=== PATIENT | male | born 1955 | race Caucasian/White ===

== ENCOUNTER → 2017-05-17 | Outpatient (CLI) | payer BC ==
[~2017-05-17] MED LIST: AMBIEN PO; CELE100C PO; HYDR-3713 PO; ISOVUE-370 76% 100ML VIAL (Q9967) As Ordered ONE; LOPR50TA PO; LOSA100T36 PO; META800T82 PO; NAPR500T2 PO; OXYC-208 PO; OXYC15TA76 PO; SOMA350T PO; VICOBULK PO
--- NOTE | 2017-05-17 09:42 | REP ---
CT CHEST WITH CONTRAST: 05/17/2017 COMPARISON: 06/03/2016, 07/10/2015, 05/08/2014. TECHNIQUE: Bolus of 75 mL Isovue 370 given and scanning through the chest with coronal and sagittal reconstructions. FINDINGS: Lung castellanos are well inflated. Prior surgical clips about the hilum and evidence for prior right upper lobectomy. Some curvilinear scarring noted and adjacent to that curvilinear scar. There are new multiple small nodular opacities and nodular infiltrate or increased scarring in the previously stable area. Surgical clips and vivienne are again noted. There is no pneumothorax or pleural effusion, lateral pleural thickening on that right side, however along the right lateral base, there is posterolateral pleural thickening and scar. Some minor linear scarring in the medial basal segment and lateral basal segment of the right lower lobe. The left lung is well inflated and remains clear except for calcified granuloma on image 19 of series 201 abutting the pleura in that left upper lobe. There are left hilar, right hilar and subcarinal calcified granulomatous nodes. Heart is not enlarged. There is no pericardial thickening or effusion. The aorta is without aneurysm or dissection. The main right and left pulmonary arteries show no gross filling defect. There is no axillary or supraclavicular mass or gross evidence for hilar mass. Bone windows show the sternum, manubrium, medial clavicles, humeral heads, scapulae and ribs without acute finding. Posterolateral right 6th rib as before. No destructive rib lesion or acute fracture. Degenerative changes in the spine without acute compression deformity. In the upper abdomen the liver, visualized is unremarkable. Spleen has a few calcifications from old granulomas disease. That portion of gallbladder and pancreas included were unremarkable. Adrenal glands and the upper poles of the kidneys are intact. Portion of pancreas and stomach included normal. IMPRESSION: 1. There is interval change in that the area along scarring in the right upper lung zone previously stable shows increased fibronodular densities mostly new. It certainly raise the possibility of tumor recurrence in that portion of the lung. I do not see definite hilar mass. Careful follow-up warranted. Differential considerations would include nodular interstitial infiltrates. 2. There are old calcified granulomas left lung and calcified hilar and mediastinal nodes as before. 3. No pathologic mediastinal or hilar adenopathy, focal lesions in the liver, spleen, adrenal glands or upper poles of the kidneys and that portion of the pancreas included is unremarkable. Bones without acute finding. Signed by Hubert Chavez MD 05/17/2017 06:54 P
== END ==
LOC: M RAD 08:07
PROVIDERS: ATTEND Nurse Practitioner Family
DX: C34.90 Malignant neoplasm of unspecified part of unspecified bronchus or lung (principal)
CPT/HCPCS: 71260; Q9967

== ENCOUNTER → 2017-07-18 | Outpatient (CLI) | payer BC ==
--- NOTE | 2017-07-18 10:16 | REP ---
CT chest with IV contrast: History: Lung carcinoma. Comparison chest CT study is from May 17, 2017. Also reviewed is CT study from June 03, 2016. CT contrast dose: 75 mL of Isovue [address] findings: The patient is status post right upper lobectomy. There is a suture line at the right hilus superiorly. There is some adjacent fibrosis in the perihilar region of the right middle lobe. This is improved when compared with the most recent prior study of May 17, 2017 and is essentially unchanged from the June 03, 2016 appearance in this region of the lung. Post thoracotomy changes are noted in the right rib cage as before. There are granulomatous calcific lymph node residuals in the mediastinum and the left hilus. Stable calcified and noncalcified nodular opacities are seen bilaterally. No new nodule is seen. No hilar or mediastinal adenopathy is observed. There is left coronary artery vascular calcification again visualized. Calcific granulomatous changes are seen in the spleen and liver as before. No adrenal lesion is observed. No extrathoracic mass or adenopathy is seen. No bony destructive lesion is appreciated. Impression: Post thoracotomy changes on the right. Granulomatous lymph node residuals and pulmonary and splenic and hepatic calcifications again noted. Some vascular calcification. Otherwise no acute disease. Peribronchial and perihilar changes in the right middle lobe distribution are improved compared to the most recent prior study. Signed by Alphonse Harp MD 07/18/2017 03:03 P
== END ==
LOC: M RAD 08:51
PROVIDERS: ATTEND Nurse Practitioner Family
DX: C34.10 Malignant neoplasm of upper lobe, unspecified bronchus or lung (principal)
CPT/HCPCS: 71260; Q9967

== ENCOUNTER → 2018-08-15 | Outpatient (CLI) | payer BC ==
[~2018-08-15] MED LIST changes: -AMBIEN PO; -CELE100C PO; -HYDR-3713 PO; +ISOVUE-370 76% 100ML VIAL (Q9967) As Ordered; -ISOVUE-370 76% 100ML VIAL (Q9967) As Ordered ONE; -LOPR50TA PO; -LOSA100T36 PO; -META800T82 PO; -NAPR500T2 PO; -OXYC-208 PO; -OXYC15TA76 PO; -SOMA350T PO; -VICOBULK PO
== END ==
LOC: M RAD 11:03
DX: Z85.118 Personal history of other malignant neoplasm of bronchus and lung (principal); I70.0 Atherosclerosis of aorta; I25.10 Atherosclerotic heart disease of native coronary artery without angina pectoris
CPT/HCPCS: Q9967

== ENCOUNTER → 2019-07-23 | Outpatient (CLI) | payer BC ==
[~2019-07-23] MED LIST changes: +AMBIEN PO; +CELE100C PO; +HYDR-3713 PO; -ISOVUE-370 76% 100ML VIAL (Q9967) As Ordered; +ISOVUE-370 76% 100ML VIAL (Q9967) As Ordered ONE; +LOPR50TA PO; +LOSA100T50 PO; +META800T82 PO; +NAPR500T2 PO; +OXYC-208 PO; +OXYC15TA76 PO; +SOMA350T PO; +VICOBULK PO
--- NOTE | 2019-07-23 16:16 | REP ---
CT of the chest with IV contrast: Comparison is 08/15/2018. There are surgical clips in the right hilus and surgical staple line in the right lung anteriorly and resection of the posterior arch of the right seventh rib, all compatible with right upper lobectomy. This is unchanged. There are a few scattered small lung nodules, similar calcified, and is are not. These are unchanged. There are no enlarging nodules. There are no acute infiltrates. There are no pleural effusions. There are calcified subcarinal mediastinal nodes. This is unchanged. There is no other mediastinal adenopathy. There are calcified hilar nodes. There is no hilar lymph node enlargement. There is no axillary lymphadenopathy. The thoracic aorta is unremarkable. Cardiac size is normal. Upper abdomen: There is no adrenal mass. The visualized hepatic parenchyma is homogeneous. The gallbladder, visualized areas of the gallbladder, pancreas and spleen are unremarkable except for multiple splenic calcified granulomas, unchanged. There is no adrenal mass. Impression: Postsurgical changes in the right hemithorax compatible with right upper lobectomy, unchanged. There are multiple small lung nodules, some of which are calcified, not significant changed. There are no enlarging lung nodules. There are calcified hilar and mediastinal nodes, unchanged. There are calcified granulomas in the spleen, unchanged. There are no new lung masses or nodules Electronically Signed by Shahid Cartagena MD 07/23/2019 04:07 P
== END ==
LOC: M RAD 13:37
PROVIDERS: ATTEND Internal Medicine
DX: C34.90 Malignant neoplasm of unspecified part of unspecified bronchus or lung (principal)
CPT/HCPCS: 71260; Q9967

== ENCOUNTER → 2019-08-03 | Outpatient (REF) | payer BC ==
[~2019-08-03] MED LIST changes: -ISOVUE-370 76% 100ML VIAL (Q9967) As Ordered ONE
== END ==
LOC: M SFHCPLAZ 16:59
PROVIDERS: ATTEND Dermatology
DX: L81.4 Other melanin hyperpigmentation (principal)

== ENCOUNTER → 2020-07-28 | Outpatient (CLI) | payer MEDICARE ==
[~2020-07-28] MED LIST changes: +ISOVUE-370 76% 100ML VIAL As Ordered ONE; +OXYC-1 PO; -OXYC15TA76 PO
--- NOTE | 2020-07-31 10:18 | REP ---
CONTRAST ENHANCED CHEST CT CLINICAL: Follow-up. History of lung cancer. TECHNIQUE: Axial contrast enhanced images from the thoracic inlet to the upper abdomen with coronal and sagittal reformations using 75 mL Isovue-370 contrast material. COMPARISON: Multiple examinations dating through 05/03/2013. FINDINGS: Postsurgical changes involving the right hemithorax compatible with prior partial right upper lobectomy again noted. Calcified mediastinal and hilar lymph nodes, as well as few small stable calcified and noncalcified bilateral nodules are again identified and unchanged. Tracheobronchial tree is patent. There is no evidence for acute consolidation, significant new nodule or mass lesion, pleural effusion, or pneumothorax. No axillary, hilar, or mediastinal adenopathy noted. Further evaluation of the mediastinum demonstrates atherosclerotic changes to the thoracic aorta and coronary arteries without aortic aneurysm or cardiomegaly. No pericardial effusion. Osseous structures without acute abnormality noted. Limited evaluation of the upper abdomen demonstrates mild fatty infiltration to the liver along with normal bilateral adrenal glands and incompletely evaluated left renal hypodensity compatible with cyst and unchanged. IMPRESSION: * Postsurgical changes involving the right hemithorax, as well as calcified lymph nodes and few scattered small stable nodules again noted and unchanged. No evidence for recurrence or metastatic disease. No acute mediastinal or pleural parenchymal process MTDD
== END ==
LOC: M RAD 09:27
PROVIDERS: ATTEND Internal Medicine
DX: Z85.118 Personal history of other malignant neoplasm of bronchus and lung (principal); Z90.2 Acquired absence of lung [part of]
CPT/HCPCS: 71260; Q9967

== ENCOUNTER → 2020-08-18 | Outpatient (CLI) | payer MEDICARE ==
[~2020-08-18] MED LIST changes: -ISOVUE-370 76% 100ML VIAL As Ordered ONE
--- NOTE | 2020-08-18 12:00 | REP ---
INDICATION: HX OF LUNG CANCER MAIN REG. COMPARISON: 11/15/2012. TECHNIQUE/RADIOTRACER AND DOSE: Following the intravenous administration of 20.5 mCi technetium 99 M MDP, patient's whole body is imaged in the anterior posterior projections with additional oblique and lateral views obtained. FINDINGS: Small focus of mildly increased uptake is seen in the posteroinferior calvarium at the midline, less intense than on the prior study. Tiny focus of increased uptake in the proximal right tibia is also smaller and less intense than on the prior study. These are compatible with benign findings. There is evidence of prior resection of a portion of the right 7th rib for thoracotomy. Mildly increased uptake is seen in the inferior left calcaneus compatible with arthritic change and likely spurring at that location. There is no compelling scintigraphic evidence of osseous metastases. Renal and bladder activity are seen. IMPRESSION: No compelling scintigraphic evidence of osseous metastases as discussed above. <Electronically signed by Shahid Hendricks > 08/18/20 [id number]
== END ==
LOC: M RAD 08:09
PROVIDERS: ATTEND Internal Medicine
DX: M54.15 Radiculopathy, thoracolumbar region (principal); Z12.2 Encounter for screening for malignant neoplasm of respiratory organs
CPT/HCPCS: 78306; A9503

== ENCOUNTER → 2020-09-04 | Outpatient (CLI) | payer MEDICARE ==
[~2020-09-04] MED LIST changes: +PROHANCE 279.3MG/ML 15ML VIAL As Ordered ONE
--- NOTE | 2020-09-04 16:41 | REPVR ---
PROCEDURE INFORMATION: Exam: MR Thoracic Spine Without and With Contrast Exam date and time: 09/04/2020 4:05 PM Age: 65 years old Clinical indication: Pain in thoracic spine; Other: Chest pain; Additional info: Other chest pain TECHNIQUE: Imaging protocol: Multiplanar magnetic resonance images of the thoracic spine without and with intravenous contrast. Contrast material: PROHANCE; Contrast volume: 15 ml; Contrast route: INTRAVENOUS (IV); COMPARISON: Correlation with report for nuclear medicine bone scan 08/18/2020. CT chest with contrast 07/28/2020. FINDINGS: Vertebrae: Mild exaggeration of the thoracic kyphosis. No acute fracture seen. Spinal cord: Normal signal. No cord compression. Discs/Spinal canal/Neural foramina: Disc height loss and spondylosis is moderate at T10-11. Endplate inflammation with enhancement is probably degenerative. Calcification of the intervertebral disc is seen on the prior CT study. Relatively mild lower thoracic degenerative disc disease elsewhere. There is diffuse idiopathic skeletal hyperostosis. Subtle disc protrusions at T4-5, T7-8 and T8-9 do not contribute to cord mass effect or central spinal canal stenosis. The central spinal canal and foramina appear patent at all levels. Soft tissues: Unremarkable. Marrow: T1 hyperintense lesions in the bone marrow consistent with focal fat or vertebral body hemangiomas. Diffuse marrow heterogeneity may reflect osseous demineralization. No suspicious enhancing marrow lesions identified. IMPRESSION: Moderate degenerative disc disease at T10-11 with endplate inflammation and enhancement. Electronically signed by: Marj Acosta On 09/04/2020 16:40:56 PM
== END ==
LOC: M RAD 14:49
PROVIDERS: ATTEND Internal Medicine
DX: M54.14 Radiculopathy, thoracic region (principal)
CPT/HCPCS: 72157; A9576

== ENCOUNTER → 2021-01-15 | Outpatient (CLI) | payer MEDICARE ==
[~2021-01-15] MED LIST changes: -PROHANCE 279.3MG/ML 15ML VIAL As Ordered ONE
[2021-01-15 14:36] LABS: FREE T4 1.08 NG/DL (0.76-1.46); THYROID STIMULATING HORMONE 0.7 uIU/ML (0.358-3.740)
== END ==
LOC: M PLALAB 10:35
PROVIDERS: ATTEND Physician Assistant Medical
DX: R19.4 Change in bowel habit (principal)

== ENCOUNTER → 2021-04-08 | Outpatient (CLI) | payer MEDICARE ==
[~2021-04-08] MED LIST changes: +AMLO1TAB25 PO; +ATOR1TAB19 PO; +BUPR150T12 PO; +CAND32TA9 PO; +OMEP-218 PO; +ZOLP10TA2 PO
== END ==
LOC: M LABSMTC 10:56
PROVIDERS: ATTEND Anesthesiology
DX: Z01.818 Encounter for other preprocedural examination (principal); Z11.52 Encounter for screening for COVID-19

== ENCOUNTER → 2021-04-14 | Outpatient (CLI) | payer MEDICARE ==
--- NOTE | 2021-04-15 23:41 | ECWPNPC ---
PATIENT NAME: LEAH SHIPMAN : 1955 GENDER: MALE VISIT DATE: 04/14/2021 DISCHARGE DATE: 04/14/21934 VISIT LOCKED DATE TIME: PHYSICIAN: YOBANY HOWE RESOURCE: YOBANY HOWE REASON FOR APPOINTMENT 1. BACK PAIN HISTORY OF PRESENT ILLNESS DEPRESSION SCREENING: PHQ-2 (2015 EDITION) LITTLE INTEREST OR PLEASURE IN DOING THINGS?NOT AT ALL FEELING DOWN, DEPRESSED, OR HOPELESS?NOT AT ALL TOTAL SCORE0 GENERAL: 65-YEAR-OLD PATIENT KNOWN TO OUR PRACTICE WITH LAST VISIT SEVERAL YEARS AGO, IS HERE ON AN URGENT BASIS WITH A 3-WEEK HISTORY OF SEVERE LOW BACK PAIN AND MUSCLE SPASM PAIN. PATIENT NOTICED THIS AFTER SITTING ON A TRACTOR MOWING. PAIN IS AGGRAVATED BY BENDING. REPORTING MAINLY RIGHT LEG RADICULAR SYMPTOMS THAT ARE INTERMITTENT. CURRENTLY USING METAXALONE PERIODICALLY FOR SEVERE PAIN EPISODES. DENIES BOWEL OR BLADDER INCONTINENCE. DENIES SADDLE PARESTHESIAS. NO RECENT ILLNESS OR SUDDEN WEIGHT LOSS. - - -. FALL RISK SCREENING: SCREENING : NO FALLS REPORTED IN THE LAST YEAR . PAIN SCREENING: PATIENT HAS A COMPLAINT OF ACUTE OR CHRONIC PAIN :YES LOCATION OF PAIN:LOW BACK INTENSITY OF PAIN (SCALE OF 1 TO 10):5 MOVEMENT CAN BRING IT UP TO A 10 WHAT DOES YOUR PAIN FEEL LIKE:SHARP DURATION:INTERMITTENT PAIN IS INCREASED BY:ACTIVITIES, PROLONGED STANDING SITTING FOR PROLONGED TIME PAIN IS DECREASED BY:OTHERS ICE NURSING NOTE: - - -. PAIN CENTER INTAKE QUESTIONS: DO YOU HAVE A HISTORY OF MRSA? :NO DO YOU TAKE A BLOOD THINNERS? :NO DO YOU HAVE ANY BLEEDING DISORDERS? :NO ANY NEW NUMBNESS OR WEAKNESS IN YOUR LEGS OR ARMS? :NO ANY PACEMAKER,DEFIBRILLATOR, OR DORSAL COLUMN STIMULATOR? :NO DO YOU HAVE ANY RASHES OR OPEN SORES? :NO ARE YOU ALLERGIC TO IV DYE? :NO ARE YOU DIABETIC? :NO ANY NEW PROBLEMS WITH YOUR MEDICATIONS? :NO HAVE YOU RECEIVED A VACCINE IN THE PAST 30 DAYS? :NO DO YOU PLAN TO RECEIVE A VACCINE IN THE NEXT 21 DAYS? :NO DO YOU NEED ANY PRESCRIPTION? :NO DO YOU TAKE ANY IMMUNOSUPPRESSIVE MEDICATIONS? :NO IS THERE A CHANCE YOU COULD BE ? :NO ARE YOU BREAST FEEDING? :NO CURRENT MEDICATIONS TAKING METAXALONE 800 MG TABLET 1 TABLET ORALLY THREE TIMES A DAY TAKING PREVNAR 13 - SUSPENSION DIRECTED INTRAMUSCULAR TAKING BUPROPION HCL ER (XL) 150 MG TABLET EXTENDED RELEASE 24 HOUR 1 TABLET IN THE MORNING ORALLY ONCE A DAY TAKING VITAMIN D 25 MCG (1000 UT) TABLET 1 TABLET ORALLY ONCE A DAY TAKING CANDESARTAN CILEXETIL 32 MG TABLET 1 TABLET ORALLY ONCE A DAY, NOTES: REPLACES LOSARTAN TAKING CELECOXIB 100 MG CAPSULE 1 CAPSULE WITH FOOD ORALLY ONCE A DAY TAKING OMEPRAZOLE 20 MG CAPSULE DELAYED RELEASE 1 CAPSULE 30 MINUTES BEFORE MORNING MEAL ORALLY ONCE A DAY NEEDED TAKING ATORVASTATIN CALCIUM 10 MG TABLET 1 TABLET ORALLY ONCE A DAY TAKING AMLODIPINE BESYLATE 10 MG TABLET 1 TABLET ORALLY ONCE A DAY TAKING ZOLPIDEM TARTRATE 10 MG TABLET 1 TABLET AT BEDTIME NEEDED ORALLY ONCE A DAY TAKING VIAGRA 100 MG TABLET 1 TABLET NEEDED ORALLY ONCE A DAY TAKING AMBIEN 10 MG TABLET 1 TABLET AT BEDTIME NEEDED ORALLY ONCE A DAY NOT-TAKING CHANTIX CONTINUING MONTH NICOLE 1 MG TABLET DIRECTED ORALLY NOT-TAKING LOSARTAN POTASSIUM 100 MG TABLET DIRECTED ORALLY DAILY NOT-TAKING CELEBREX 100 MG CAPSULE 1 CAPSULE WITH FOOD ORALLY ONCE A DAY NOT-TAKING CHANTIX STARTING MONTH NICOLE 0.5 MG X 11 & 1 MG X 42 TABLET DIRECTED ORALLY MEDICATION LIST REVIEWED AND RECONCILED WITH THE PATIENT PAST MEDICAL HISTORY LUNG CANCER MM X 2 MALIGNANT TUMOR OF BRONCHUS LOW BACK PAIN BENIGN ESSENTIAL HYPERTENSION INSOMNIA SHINGRIX 01/01/2019 PNEUMOVAX 11/02/2016 TETANUS 12/29/2017 ZOSTAVAX 12/17/2013 PSA 01/30/2019 HYPERTRIGLYCERIDEMIA DEPRESSION/ANXIETY LEUKOCYTOSIS ALCOHOL ABUSE 2 FALLS LAST YEAR ONE FALL HAD INJURY ALLERGIES DAIRY -LACTOSE INTOLERANCE: NAUSEA/VOMITING - ALLERGY - CRITICALITY HIGH - ONSET DATE 08/03/2019 SURGICAL HISTORY TOP RIGHT LUNG PARTIAL LOBECTOMY- [facility] 2008 EXCISION MM MID UPPER BACK 2014 EXCISION MM MID UPPER BACK 2017 LOWER BACK SURGERY LAMINECTOMY 2004,2005 COLONOSCOPY 12/25/2015 LAMINECTOMY 1988 FAMILY HISTORY FATHER: MOTHER: ALIVE SIBLINGS: DENIES FAMILY HX OF MM, UNSURE THERE IS CARDIC, DIABETES AND BREAST CNACER IN THE FAMILYTWIN BROTHER AT THE AGE OF 49, COMPLICATIONS OF DM. HALF SISITER HAS CA OF THE BREAST. SOCIAL HISTORY GENERAL: TOBACCO USE ARE YOU A:FORMER SMOKER HOW LONG HAS IT BEEN SINCE YOU LAST SMOKED?> 10 YEARS PATIENT QUIT DUE TO LUNG CANCER LATEX QUESTIONNAIRE LATEX ALLERGY : HAVE YOU EVER DEVELOPED ANY TYPE OF REACTION AFTER HANDLING LATEX PRODUCTS SUCH RUBBER GLOVES, CONDOMS, DIAPHRAGMS, BALLOONS, SOCKS, OR UNDERWEAR?NO LATEX ALLERGY : HAVE YOU EVER DEVELOPED ANY TYPE OF REACTION DURING OR AFTER DENTAL APPOINTMENT, VAGINAL/RECTAL EXAMINATION, SURGICAL PROCEDURE, OR ANY OTHER EXPOSURE?NO LATEX RISK : HAVE YOU EVER HAD ANY DIFFICULTY BREATHING OR HIVES AFTER EATING OR HANDLING ANY FRUITS, OR VEGETABLES; SUCH KIWI, BANANAS, STONE FRUITS, OR CHESTNUTSNO LATEX RISK : DO YOU HAVE A PREVIOUS PERSONAL HISTORY OF MORE THAN NINE SURGERIES, SPINA BIFIDA, OR REPEATED CATHERIZATIONS? NO LATEX RISK : ARE YOU FREQUENTLY EXPOSED TO LATEX PRODUCTS IN YOUR OCCUPATION?NO DATE ASKED : 04/14/2021 ALCOHOL USE: YES, ONCE A WEEK. 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 MARITAL STATUS: .. HOSPITALIZATION/MAJOR DIAGNOSTIC PROCEDURE R/T SURGERIES SEVERE FLARE 2020 REVIEW OF SYSTEMS CONSTITUTIONAL: ANY RECENT FEVER NO . CHILLS NO . WEIGHT CHANGE OF UNKNOWN REASONS NO . GASTROENTEROLOGY: NEW UNEXPLAINABLE CHANGES IN BOWEL CONTROL NO . CONSTIPATION NO . GENITOURINARY: ANY NEW CHANGE IN BLADDER CONTROL? NO . NEUROLOGY: NEW ONSET DIZZINESS OR NEUROLOGICAL CHANGES NOT MENTIONED NO . NEW NUMBNESS OR PAIN PATTERNS NOT MENTIONED AND PERTINENT TO TODAY'S VISIT NO . CARDIOLOGY: NEW CHEST PRESSURE NO . PATIENT DENIES NO . RESPIRATORY: UNEXPLAINABLE COUGH NO . NEW SHORTNESS OF BREATH NO . VITAL SIGNS WT 192 LBS, HT 70 IN, BMI 27.55 INDEX, BP 153/90 MM HG, HR 78 /MIN, RR 18 /MIN, TEMP 98.1 F, OXYGEN SAT % 96%, SAFE IN ENV? (Y/N) YES, REVIEWED BY: AMANDA DIEGO MA. EXAMINATION GENERAL EXAMINATION: GENERALNO ACUTE DISTRESS, WELL NOURISHED AND HYDRATED. PSYCHAPPROPRIATE MOOD AND AFFECT . NECK:NO LYMPHADENOPATHY, SUPPLE. LUNGS:CLEAR TO AUSCULTATION BILATERALLY, NO WHEEZES, RHONCHI, RALES. HEART:NO MURMURS, REGULAR RATE AND RHYTHM. MUSCULOSKELETAL: MUSCLE STRENGTH TESTING 5/5 BILATERAL LOWER EXTREMITIES. LUMBAR: TRIGGER POINTS: ELICITED WITH PALPATION OVER LUMBAR PARASPINAL REGION. PAIN IN THIS AREA IS AGGRAVATED BY RANGE OF JOINT MOTION OF THE SPINE.. NEUROLOGIC EXAM:NORMAL SENSATION TO LIGHT TOUCH LOWER EXTREMITIES. ASSESSMENTS MYALGIA, OTHER SITE - M79.18 (PRIMARY) RADICULOPATHY, LUMBAR REGION - M54.16 TREATMENT MYALGIA, OTHER SITE LAB: BLOOD UREA NITROGEN (BUN) LAB: CREATININE MEDICATION: VALIUM TAB 5MG ORALLY (DIAZEPAM) (ORDERED FOR 04/28/2021) MEDICATION: OXYCODONE HCL TAB 5MG ORALLY (ORDERED FOR 04/28/2021) NOTES: USE IYGO-[id number]-[id number] COMBINATION PILL ACETAMINOPHEN/IBUPROFEN DIRECTED FOR PAIN EPISODES NEEDED. WHEN STARTING THIS MEDICATION STOP ALL OTHER NONSTEROIDAL ANTI-INFLAMMATORY DRUGS INCLUDING CELEBREX, ADVIL, ALEVE, IBUPROFEN, NAPROXEN. , TRIGGER POINT INJECTIONS BILATERAL THORACIC, BILATERAL LUMBAR PRINTED AND REVIEWED PRE PROCEDURE INFORMATION, PATIENT VERBALIZED UNDERSTANDING MOHIT DURAND. RADICULOPATHY, LUMBAR REGION [facility] MRI LS SPINE W/O AND WITH [id number] PROCEDURE CODES [id number] ESTABILISHED PATIENT [facility] FAC[facility] CHARGE DISPOSITION & COMMUNICATION FOLLOW UP POST PROCEDURE (REASON: TRIGGER POINT INJECTIONS BILATERAL LUMBAR,BILATERAL LOW BACK) ELECTRONICALLY SIGNED BY ANSLEY BROWNE ON 04/15/2021 AT 12:58 PM EDT DISCLAIMER : THIS IS A VISIT SUMMARY EXTRACTED FROM THE [employer] CHART. IT IS NOT A COPY OF THE [employer] PROGRESS NOTE. SHELBY
== END ==
LOC: M PAIN 08:30
PROVIDERS: ATTEND Nurse Practitioner Family
DX: M79.18 Myalgia, other site (principal); M54.16 Radiculopathy, lumbar region; I10 Essential (primary) hypertension; G47.00 Insomnia, unspecified; E78.1 Pure hyperglyceridemia; F32.9 Major depressive disorder, single episode, unspecified; F41.9 Anxiety disorder, unspecified; F10.10 Alcohol abuse, uncomplicated; Z87.891 Personal history of nicotine dependence; Z85.118 Personal history of other malignant neoplasm of bronchus and lung; Z91.011 Allergy to milk products

== ENCOUNTER → 2021-04-24 | Outpatient (CLI) | payer MEDICARE | LOC: M LABSMTC 10:08 | PROVIDERS: ATTEND Anesthesiology | DX: Z11.52 Encounter for screening for COVID-19 (principal) | CPT/HCPCS: G0463; U0003 ==

== ENCOUNTER → 2021-04-28 | Outpatient (CLI) | payer MEDICARE ==
[~2021-04-28] MED LIST changes: +CAND32TA18 PO; -CAND32TA9 PO; +LOSA100T45 PO; -LOSA100T50 PO; +OMEP-173 PO; -OMEP-218 PO; +PROHANCE 279.3MG/ML 15ML VIAL As Ordered ONE; +PROHANCE 279.3MG/ML 5ML VIAL As Ordered ONE
== END ==
LOC: M RAD 14:23
PROVIDERS: ATTEND Nurse Practitioner Family
DX: M54.16 Radiculopathy, lumbar region (principal)
CPT/HCPCS: 72148; A9576

== ENCOUNTER → 2021-04-29 | Outpatient (CLI) | payer MEDICARE ==
[~2021-04-29] MED LIST changes: +BUPIVACAINE HCL 0.25% 10ML VIAL As Ordered ONE; +BUPIVACAINE HCL 0.25% 30ML VIAL As Ordered ONE; -CAND32TA18 PO; +CAND32TA9 PO; -LOSA100T45 PO; +LOSA100T50 PO; +NORCO, ANEXSIA 5/325MG TABLET (HYDROcodone/ACETAMINOPHEN) As Ordered ONE; -OMEP-173 PO; +OMEP-218 PO; -PROHANCE 279.3MG/ML 15ML VIAL As Ordered ONE; -PROHANCE 279.3MG/ML 5ML VIAL As Ordered ONE; +TRIAMCINOLONE ACETONIDE SUSP 40 MG/ML VIAL (J3301) As Ordered ONE; +diazePAM 5MG TABLET As Ordered ONE
--- NOTE | 2021-05-02 03:10 | ECWPNPC ---
PATIENT NAME: LEAH SHIPMAN : 1955 GENDER: MALE VISIT DATE: 04/29/2021 DISCHARGE DATE: 04/29/21 1046 VISIT LOCKED DATE TIME: PHYSICIAN: CHELSEA WILLSON MD RESOURCE: CHELSEA WILLSON MD REASON FOR APPOINTMENT 1. TRIGGER POINT INJECTIONS BILATERAL THORACIC, BILATERAL LUMBAR HISTORY OF PRESENT ILLNESS GENERAL: -. FALL RISK SCREENING: SCREENING : NO FALLS REPORTED IN THE LAST YEAR. PAIN SCREENING: PATIENT HAS A COMPLAINT OF ACUTE OR CHRONIC PAIN :YES LOCATION OF PAIN:LOW BACK INTENSITY OF PAIN (SCALE OF 1 TO 10):5 WHAT DOES YOUR PAIN FEEL LIKE:ACHING DURATION:CONTINOUS, CONSTANT PAIN IS INCREASED BY:ACTIVITIES PAIN IS DECREASED BY: LYING FLAT WITH LEGS PROPPED UP NURSING NOTE: -. PAIN CENTER INTAKE QUESTIONS: DO YOU HAVE A HISTORY OF MRSA? :NO DO YOU TAKE A BLOOD THINNERS? :NO DO YOU HAVE ANY BLEEDING DISORDERS? :NO ANY NEW NUMBNESS OR WEAKNESS IN YOUR LEGS OR ARMS? :YES NUMBNESS IN RIGHT FOOT ANY PACEMAKER,DEFIBRILLATOR, OR DORSAL COLUMN STIMULATOR? :NO DO YOU HAVE ANY RASHES OR OPEN SORES? :NO ARE YOU ALLERGIC TO IV DYE? :NO ARE YOU DIABETIC? :NO ANY NEW PROBLEMS WITH YOUR MEDICATIONS? :NO HAVE YOU RECEIVED A VACCINE IN THE PAST 30 DAYS? :NO DO YOU PLAN TO RECEIVE A VACCINE IN THE NEXT 21 DAYS? :NO DO YOU TAKE ANY IMMUNOSUPPRESSIVE MEDICATIONS? :NO ANY HISTORY OF SEIZURES? :NO ANY HISTORY OF CARDIAC ISSUES OR EVENTS? :NO DO YOU HAVE ANY KIDNEY OR LIVER DISEASE? :NO DO YOU HAVE SLEEP APNEA? :NO ANY RECENT HEAD INJURY? :NO DO YOU HAVE ANY NEW INFECTIONS? :NO IS THERE A CHANCE YOU COULD BE ? :NO ARE YOU BREAST FEEDING? :NO WHEN DID YOU LAST EAT? : 04/28/21 2100 WHEN DID YOU LAST DRINK? : 04/29/21 0630 WHAT DID YOU LAST DRINK? : BLACK COFFEE NAME OF PERSON DRIVING YOU HOME? : FRIEND DO YOU HAVE ANY OTHER QUESTIONS OR CONCERNS? : - CURRENT MEDICATIONS TAKING METAXALONE 800 MG TABLET 1 TABLET ORALLY THREE TIMES A DAY TAKING PREVNAR 13 - SUSPENSION DIRECTED INTRAMUSCULAR TAKING BUPROPION HCL ER (XL) 150 MG TABLET EXTENDED RELEASE 24 HOUR 1 TABLET IN THE MORNING ORALLY ONCE A DAY TAKING VITAMIN D 25 MCG (1000 UT) TABLET 1 TABLET ORALLY ONCE A DAY TAKING CANDESARTAN CILEXETIL 32 MG TABLET 1 TABLET ORALLY ONCE A DAY, NOTES: 04/28/21 TAKING CELECOXIB 100 MG CAPSULE 1 CAPSULE WITH FOOD ORALLY ONCE A DAY TAKING OMEPRAZOLE 20 MG CAPSULE DELAYED RELEASE 1 CAPSULE 30 MINUTES BEFORE MORNING MEAL ORALLY ONCE A DAY NEEDED TAKING ATORVASTATIN CALCIUM 10 MG TABLET 1 TABLET ORALLY ONCE A DAY, NOTES: 04/28/21 TAKING AMLODIPINE BESYLATE 10 MG TABLET 1 TABLET ORALLY ONCE A DAY, NOTES: 04/28/21 TAKING ZOLPIDEM TARTRATE 10 MG TABLET 1 TABLET AT BEDTIME NEEDED ORALLY ONCE A DAY, NOTES: 04/28/21 TAKING VIAGRA 100 MG TABLET 1 TABLET NEEDED ORALLY ONCE A DAY NOT-TAKING AMBIEN 10 MG TABLET 1 TABLET AT BEDTIME NEEDED ORALLY ONCE A DAY NOT-TAKING CHANTIX CONTINUING MONTH NICOLE 1 MG TABLET DIRECTED ORALLY NOT-TAKING LOSARTAN POTASSIUM 100 MG TABLET DIRECTED ORALLY DAILY NOT-TAKING CELEBREX 100 MG CAPSULE 1 CAPSULE WITH FOOD ORALLY ONCE A DAY NOT-TAKING CHANTIX STARTING MONTH NICOLE 0.5 MG X 11 & 1 MG X 42 TABLET DIRECTED ORALLY MEDICATION LIST REVIEWED AND RECONCILED WITH THE PATIENT PAST MEDICAL HISTORY LUNG CANCER MM X 2 MALIGNANT TUMOR OF BRONCHUS LOW BACK PAIN BENIGN ESSENTIAL HYPERTENSION INSOMNIA SHINGRIX 01/01/2019 PNEUMOVAX 11/02/2016 TETANUS 12/29/2017 ZOSTAVAX 12/17/2013 PSA 01/30/2019 HYPERTRIGLYCERIDEMIA DEPRESSION/ANXIETY LEUKOCYTOSIS ALCOHOL ABUSE 2 FALLS LAST YEAR ONE FALL HAD INJURY ALLERGIES DAIRY -LACTOSE INTOLERANCE: NAUSEA/VOMITING - ALLERGY - CRITICALITY HIGH - ONSET DATE 08/03/2019 SOCIAL HISTORY GENERAL: TOBACCO USE ARE YOU A:FORMER SMOKER HOW LONG HAS IT BEEN SINCE YOU LAST SMOKED?> 10 YEARS PATIENT QUIT DUE TO LUNG CANCER LATEX QUESTIONNAIRE LATEX ALLERGY : HAVE YOU EVER DEVELOPED ANY TYPE OF REACTION AFTER HANDLING LATEX PRODUCTS SUCH RUBBER GLOVES, CONDOMS, DIAPHRAGMS, BALLOONS, SOCKS, OR UNDERWEAR?NO LATEX ALLERGY : HAVE YOU EVER DEVELOPED ANY TYPE OF REACTION DURING OR AFTER DENTAL APPOINTMENT, VAGINAL/RECTAL EXAMINATION, SURGICAL PROCEDURE, OR ANY OTHER EXPOSURE?NO DATE ASKED : 04/14/2021 LATEX RISK : HAVE YOU EVER HAD ANY DIFFICULTY BREATHING OR HIVES AFTER EATING OR HANDLING ANY FRUITS, OR VEGETABLES; SUCH KIWI, BANANAS, STONE FRUITS, OR CHESTNUTSNO LATEX RISK : DO YOU HAVE A PREVIOUS PERSONAL HISTORY OF MORE THAN NINE SURGERIES, SPINA BIFIDA, OR REPEATED CATHERIZATIONS? NO LATEX RISK : ARE YOU FREQUENTLY EXPOSED TO LATEX PRODUCTS IN YOUR OCCUPATION?NO ALCOHOL USE: YES, ONCE A WEEK. 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 MARITAL STATUS: .. VITAL SIGNS WT 187.0 LBS, HT 70 IN, BMI 26.83 INDEX, BP 134/83 MM HG, HR 74 /MIN, RR 18 /MIN, TEMP 98.1 F, OXYGEN SAT % 97%, SAFE IN ENV? (Y/N) Y, NA INITIALS AW 0847, REVIEWED BY: ZACHERY. EXAMINATION GENERAL: THE PATIENT IS ALERT, ORIENTED TIMES THREE AND COOPERATIVE. LUNGS ARE CLEAR TO AUSCULTATION. HEART SHOWS REGULAR RHYTHM, NO MURMURS AND NO GALLOPS. ASSESSMENTS MYALGIA, OTHER SITE - M79.18 (PRIMARY) RADICULOPATHY, LUMBAR REGION - M54.16 LUMBOSACRAL RADICULOPATHY AT S1 - M54.17 TREATMENT MYALGIA, OTHER SITE MEDICATION: PAIN VALIUM TAB 10MG ORALLY (DIAZEPAM)VIDAL RANDHAWA 04/29/2021 9:35:17 AM > VERIFIED LILLI GILLETTE 04/29/2021 9:40:50 AM > ADMINISTERED COMPLETION OF PROCEDURAL VISIT WHEN MEETS CRITERIALILLI GILLETTE 04/29/2021 10:48:44 AM > CRITERIA MET MED: PAIN NORCO TABLET 5MG/325MG ORALLY HYDROCODONE/ACETAMINOPHENVIDAL RANDHAWA 04/29/2021 9:35:42 AM > VERIFIED LILLI GILLETTE 04/29/2021 9:41:09 AM > ADMINISTERED MEDICATION: PAIN VALIUM TAB 5MG ORALLY (DIAZEPAM)CARLY ESPAÑA 04/29/2021 9:30:29 AM > ORDER CANCELLED. MEDICATION: PAIN OXYCODONE HCL TAB 5MG ORALLY CARLY ESPAÑA 04/29/2021 9:30:14 AM > ORDER CANCELLED. LUMBOSACRAL RADICULOPATHY AT S[facility] CT PELVIS WITHOUT [id number] 04/29/2021 10:32:27 AM > PELVIS/SACRAL PAYING SPECIAL ATTENTION TO THE RIGHT LAMINA OF S1 ROBBY HEBERT 04/30/2021 11:57:16 AM > CT PELVIS W/O CONTRAST CPT 17657 HAS BEEN APPROVED. AUTH # [id number] AUTH VALID FROM 04/30/21-10/27/21 PROCEDURES PAIN NURSING RECORD PROCEDURE IN ROOM 0900, PHYSICIAN IN ROOM 1015, START 1022, FINISH 1026, PHYSICIAN OUT OF ROOM 1027, OUT OF ROOM 1047, ECG N/A, PATIENT SHIELDED N/A, SAFETY STRAP N/A, PREP ALCOHOL DR. WILLSON, DRESSING TEGADERM Tere GILLETTE RN LOC: 1. ALERT, ORIENTED, LILLI GILLETTE 04/29/2021 10:24:31 AM > RESP: 1. REGULAR, NO DYSPNEA, LILLI GILLETTE 04/29/2021 10:24:35 AM > COLOR: 1. PINK, LILLI GILLETTE 04/29/2021 10:24:39 AM > SKIN: 1. WARM, DRY, LILLI GILLETTE 04/29/2021 10:24:44 AM > POSITION: 5. SITTING, LILLI GILLETTE 04/29/2021 9:59:33 AM > VITALS: 154/89, 67, 16, 97%, LILLI GILLETTE 04/29/2021 10:48:00 AM > NOTES Tere GILLETTE RN, LILLI GILLETTE 04/29/2021 9:59:42 AM > COMPLETION OF PROCEDURE APPOINTMENT: POST PAIN 0, DRESSING SITE DRY AND INTACT, IV N/A, GAIT STEADY, TEACHING COMPLETED, PATIENT ACKNOWLEDGES UNDERSTANDING YES, PROCEDURE APPOINTMENT COMPLETED AT 1048 PN TRIGGER POINT INJECTION WITH STEROIDS PRE PROCEDURE DIAGNOSIS 1. MYALGIA 2. PAIN AT BILATERAL LOW BACK AREA POST PROCEDURE DIAGNOSIS 1. MYALGIA 2. PAIN AT BILATERAL LOW BACK AREA PROCEDURE TRIGGER POINT INJECTION AT BILATERAL LOW BACK AREA SURGEON DR. CHELSEA WILLSON SPANISHER NONE ANESTHESIA LOCAL PRE PROCEDURE NOTE THE PATIENT HAS A HISTORY OF CHRONIC PAIN AT THE RIGHT AND LEFT THORACIC AREA AND RIGHT AND LEFT LOW BACK AREA. I EVALUATED THE PATIENT AND REVIEWED THE CHART. THERE IS EVIDENCE OF BANDS OF TISSUE WITH RESTRICTION OF MOVEMENT AND PRESENCE OF TRIGGER POINT AT THE RIGHT AND LEFT THORACIC AREA AND RIGHT AND LEFT LOW BACK AREA. I WENT OVER THE RISKS, ALTERNATIVES, AND BENEFITS ASSOCIATED WITH THIS PROCEDURE. THE PATIENT WOULD LIKE TO PROCEED AND GIVE CONSENT TO PERFORMED THE PROCEDURE. THE PATIENT DENIES UNEXPLAINABLE WEIGHT LOSS, FEVER, CHILLS, OR NEW CHANGES IN URINARY OR BOWEL CONTROL. THE PATIENT IS COVID-19 NEGATIVE DESCRIPTION OF PROCEDURE THE PATIENT WAS BROUGHT TO THE PROCEDURE ROOM AND PLACED IN THE SITTING POSITION. THE AREA WAS CLEANED WITH ALCOHOL. THE PROCEDURE WAS DONE USING ASEPTIC STERILE TECHNIQUE. A TIMEOUT WAS PERFORMED WHERE THE CONSENTED SITE WAS VERIFIED WITH EVERYONE IN THE ROOM. USING A 25-GAUGE NEEDLE, TRIGGER POINTS WERE INJECTED AT THE RIGHT AND LEFT LOW BACK AREA WITH A TOTAL OF 40 ML OF BUPIVACAINE 0.25% AND KENALOG 40 MG. THE MEDICATIONS WERE VERIFIED WITH THE NURSE. THERE WAS NO EVIDENCE OF BLOOD OR PARESTHESIA DURING THE PROCEDURE. THE PATIENT WAS SENT TO THE RECOVERY ROOM. THE PATIENT WAS MOVING THE EXTREMITIES AND DOING WELL. THERE WERE NO COMPLICATIONS DURING THE PROCEDURE. ESTIMATED BLOOD LOSS WAS LESS THAN 5 ML POST PROCEDURE NOTE I REVIEWED MR. SHIPMAN'S MRI THAT WAS DONE YESTERDAY. I ALSO DISCUSSED IT WITH DR. STAFFORD. THERE IS A SMALL LESION OR CHANGES AT THE RIGHT S1. IT SEEMS TO BE ASSOCIATED WITH THE PRIOR SURGERY. TO BE ON THE SAFE SIDE, I WILL ORDER A PELVIC/SACRAL CT SCAN WITH SPECIAL ATTENTION TO THE RIGHT LAMINA OF S1. I WILL ALSO DISCUSS THE CASE WITH HIS PRIMARY, EUGENE REEYS, TO CONSIDER REPEATING A BONE SCAN. IF THIS INJECTION HELPS THE PATIENT GREAT, OTHERWISE, WE SHOULD CONSIDER WORKING WITH THE PATIENT'S FACET JOINTS WHICH HAS HELPED IN THE PAST. THE PROCEDURE DONE WAS DISCUSSED WITH THE PATIENT. THE PATIENT WILL BE SEEN IN A FOLLOW UP IN THE NEXT FEW WEEKS. I AM LOOKING FOR LONG LASTING PAIN RELIEF FOR THE PATIENT WITH THIS INTERVENTION. INSTRUCTIONS WERE GIVEN, QUESTIONS WERE ANSWERED, AND THE PATIENT EXPRESSED UNDERSTANDING AND AGREES WITH THE PLAN. I, DEVAN QIU, DOCUMENTED THE ABOVE INFORMATION ACTING A SCRIBE FOR DR. WILLSON. I HAVE REVIEWED THE ABOVE DOCUMENT, WRITTEN BY DEVAN QIU OUTPATIENT ADMITTING CLERK, AND I VERIFY THAT IT IS ACCURATE PROCEDURE CODES 62701 INJ TRIGGER POINT 1/2 MUSCL DISPOSITION & COMMUNICATION FOLLOW UP FOLLOW UP WITH [facility]NC LATHE PROGRAMMER (REASON: POST TRIGGER POINT INJECTIONS BILATERAL THORACIC AND BILATERAL LOW BACK) ELECTRONICALLY SIGNED BY CHELSEA WILLSON MD, MD ON 05/01/2021 AT 10:17 AM EDT DISCLAIMER : THIS IS A VISIT SUMMARY EXTRACTED FROM THE [email or web address] CHART. IT IS NOT A COPY OF THE [email or web address] PROGRESS NOTE. SHELBY
== END ==
LOC: M PAIN 08:30
PROVIDERS: ATTEND Anesthesiology
DX: M79.18 Myalgia, other site (principal); M54.16 Radiculopathy, lumbar region; M54.17 Radiculopathy, lumbosacral region; I10 Essential (primary) hypertension; E78.1 Pure hyperglyceridemia; F32.9 Major depressive disorder, single episode, unspecified; F41.9 Anxiety disorder, unspecified; F10.10 Alcohol abuse, uncomplicated; Z87.891 Personal history of nicotine dependence; Z79.899 Other long term (current) drug therapy; E73.9 Lactose intolerance, unspecified; C34.90 Malignant neoplasm of unspecified part of unspecified bronchus or lung
CPT/HCPCS: 20552; J3301

== ENCOUNTER → 2021-05-07 | Outpatient (CLI) | payer MEDICARE ==
[~2021-05-07] MED LIST changes: -BUPIVACAINE HCL 0.25% 10ML VIAL As Ordered ONE; -BUPIVACAINE HCL 0.25% 30ML VIAL As Ordered ONE; -NORCO, ANEXSIA 5/325MG TABLET (HYDROcodone/ACETAMINOPHEN) As Ordered ONE; -TRIAMCINOLONE ACETONIDE SUSP 40 MG/ML VIAL (J3301) As Ordered ONE; -diazePAM 5MG TABLET As Ordered ONE
--- NOTE | 2021-05-07 11:39 | REP ---
INDICATION: RADICULOPATHY. COMPARISON: 07/26/2010 TECHNIQUE: Axial CT pelvis without contrast, sagittal and coronal reconstruction images. FINDINGS: There is no adenopathy in the pelvis. No cystic or solid mass is seen. Visualized bowel loops are unremarkable. The appendix is normal. There is no free air or free fluid. The urinary bladder is mildly distended and appears grossly unremarkable. There are degenerative changes of the lower lumbar spine and both hips. No bone lesion is seen. IMPRESSION: No pelvic mass or adenopathy. Degenerative changes lower lumbar spine and hips. <Electronically signed by Shahid Hendricks > 05/07/21 [id number]
== END ==
LOC: M RAD 10:16
PROVIDERS: ATTEND Anesthesiology
DX: M54.17 Radiculopathy, lumbosacral region (principal)

== ENCOUNTER → 2021-05-13 | Outpatient (CLI) | payer MEDICARE ==
--- NOTE | 2021-05-14 02:14 | ECWPNPC ---
PATIENT NAME: LEAH SHIPMAN : 1955 GENDER: MALE VISIT DATE: 05/13/2021 DISCHARGE DATE: 05/13/21 1037 VISIT LOCKED DATE TIME: PHYSICIAN: YOBANY HOWE RESOURCE: YOBANY HOWE REASON FOR APPOINTMENT 1. POST TRIGGER POINT INJECTIONS BILATERAL THORACIC, BILATERAL LUMBAR HISTORY OF PRESENT ILLNESS GENERAL: HERE FOR POSTPROCEDURE FOLLOW-UP. HAD BILATERAL TRIGGER POINT INJECTIONS TO LUMBAR AND THORACIC REGION ON 04/29/2021. REPORTING IMPROVEMENT IN PAIN SINCE PROCEDURE. REPORTING IMPROVED ACTIVITY TOLERANCE SINCE PROCEDURE. OVERALL VERY HAPPY WITH RESULTS. HE HAS RETURNED TO HOME EXERCISE AND USE OF ELLIPTICAL. DR. WILLSON ORDERED A CT SCAN OF THE PELVIS AT PROCEDURE APPOINTMENT DUE TO SOME SUBTLE ABNORMALITIES NOTED IN IMAGING STUDIES OF THE MRI THAT WAS DONE PRIOR TO THIS. THIS IS REVIEWED TODAY AND WITHIN NORMAL LIMITS. -. FALL RISK SCREENING: SCREENING : NO FALLS REPORTED IN THE LAST YEAR. PAIN SCREENING: PATIENT HAS A COMPLAINT OF ACUTE OR CHRONIC PAIN :YES LOCATION OF PAIN:MID BACK, LOW BACK INTENSITY OF PAIN (SCALE OF 1 TO 10):3 WHAT DOES YOUR PAIN FEEL LIKE:CONTINOUS, SORE DURATION:CONTINOUS, CONSTANT, ALL DAY PAIN IS INCREASED BY:ACTIVITIES PAIN IS DECREASED BY:OTHERS LAYING DOWN NURSING NOTE: -. PAIN CENTER INTAKE QUESTIONS: DO YOU HAVE A HISTORY OF MRSA? :NO DO YOU TAKE A BLOOD THINNERS? :NO DO YOU HAVE ANY BLEEDING DISORDERS? :NO ANY NEW NUMBNESS OR WEAKNESS IN YOUR LEGS OR ARMS? :NO ANY PACEMAKER,DEFIBRILLATOR, OR DORSAL COLUMN STIMULATOR? :NO DO YOU HAVE ANY RASHES OR OPEN SORES? :NO ARE YOU ALLERGIC TO IV DYE? :NO ARE YOU DIABETIC? :NO ANY NEW PROBLEMS WITH YOUR MEDICATIONS? :NO HAVE YOU RECEIVED A VACCINE IN THE PAST 30 DAYS? :NO DO YOU PLAN TO RECEIVE A VACCINE IN THE NEXT 21 DAYS? :NO DO YOU NEED ANY PRESCRIPTION? :NO DO YOU TAKE ANY IMMUNOSUPPRESSIVE MEDICATIONS? :NO IS THERE A CHANCE YOU COULD BE ? :NO ARE YOU BREAST FEEDING? :NO CURRENT MEDICATIONS TAKING METAXALONE 800 MG TABLET 1 TABLET ORALLY THREE TIMES A DAY TAKING BUPROPION HCL ER (XL) 150 MG TABLET EXTENDED RELEASE 24 HOUR 1 TABLET IN THE MORNING ORALLY ONCE A DAY TAKING VITAMIN D 25 MCG (1000 UT) TABLET 1 TABLET ORALLY ONCE A DAY TAKING CANDESARTAN CILEXETIL 32 MG TABLET 1 TABLET ORALLY ONCE A DAY TAKING CELECOXIB 100 MG CAPSULE 1 CAPSULE WITH FOOD ORALLY ONCE A DAY TAKING OMEPRAZOLE 20 MG CAPSULE DELAYED RELEASE 1 CAPSULE 30 MINUTES BEFORE MORNING MEAL ORALLY ONCE A DAY NEEDED TAKING ATORVASTATIN CALCIUM 10 MG TABLET 1 TABLET ORALLY ONCE A DAY TAKING AMLODIPINE BESYLATE 10 MG TABLET 1 TABLET ORALLY ONCE A DAY TAKING ZOLPIDEM TARTRATE 10 MG TABLET 1 TABLET AT BEDTIME NEEDED ORALLY ONCE A DAY TAKING VIAGRA 100 MG TABLET 1 TABLET NEEDED ORALLY ONCE A DAY NOT-TAKING PREVNAR 13 - SUSPENSION DIRECTED INTRAMUSCULAR NOT-TAKING AMBIEN 10 MG TABLET 1 TABLET AT BEDTIME NEEDED ORALLY ONCE A DAY NOT-TAKING CHANTIX CONTINUING MONTH NICOLE 1 MG TABLET DIRECTED ORALLY NOT-TAKING LOSARTAN POTASSIUM 100 MG TABLET DIRECTED ORALLY DAILY NOT-TAKING CELEBREX 100 MG CAPSULE 1 CAPSULE WITH FOOD ORALLY ONCE A DAY NOT-TAKING CHANTIX STARTING MONTH NICOLE 0.5 MG X 11 & 1 MG X 42 TABLET DIRECTED ORALLY MEDICATION LIST REVIEWED AND RECONCILED WITH THE PATIENT PAST MEDICAL HISTORY LUNG CANCER MM X 2 MALIGNANT TUMOR OF BRONCHUS LOW BACK PAIN BENIGN ESSENTIAL HYPERTENSION INSOMNIA SHINGRIX 01/01/2019 PNEUMOVAX 11/02/2016 TETANUS 12/29/2017 ZOSTAVAX 12/17/2013 PSA 01/30/2019 HYPERTRIGLYCERIDEMIA DEPRESSION/ANXIETY LEUKOCYTOSIS ALCOHOL ABUSE 2 FALLS LAST YEAR ONE FALL HAD INJURY ALLERGIES DAIRY -LACTOSE INTOLERANCE: NAUSEA/VOMITING - ALLERGY - CRITICALITY HIGH - ONSET DATE 08/03/2019 SOCIAL HISTORY GENERAL: TOBACCO USE ARE YOU A:FORMER SMOKER HOW LONG HAS IT BEEN SINCE YOU LAST SMOKED?> 10 YEARS PATIENT QUIT DUE TO LUNG CANCER LATEX QUESTIONNAIRE LATEX ALLERGY : HAVE YOU EVER DEVELOPED ANY TYPE OF REACTION AFTER HANDLING LATEX PRODUCTS SUCH RUBBER GLOVES, CONDOMS, DIAPHRAGMS, BALLOONS, SOCKS, OR UNDERWEAR?NO LATEX ALLERGY : HAVE YOU EVER DEVELOPED ANY TYPE OF REACTION DURING OR AFTER DENTAL APPOINTMENT, VAGINAL/RECTAL EXAMINATION, SURGICAL PROCEDURE, OR ANY OTHER EXPOSURE?NO LATEX RISK : HAVE YOU EVER HAD ANY DIFFICULTY BREATHING OR HIVES AFTER EATING OR HANDLING ANY FRUITS, OR VEGETABLES; SUCH KIWI, BANANAS, STONE FRUITS, OR CHESTNUTSNO LATEX RISK : DO YOU HAVE A PREVIOUS PERSONAL HISTORY OF MORE THAN NINE SURGERIES, SPINA BIFIDA, OR REPEATED CATHERIZATIONS? NO LATEX RISK : ARE YOU FREQUENTLY EXPOSED TO LATEX PRODUCTS IN YOUR OCCUPATION?NO DATE ASKED : 05/13/2021 ALCOHOL USE: YES, ONCE A WEEK. 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 MARITAL STATUS: .. REVIEW OF SYSTEMS CONSTITUTIONAL: ANY RECENT FEVER NO . CHILLS NO . WEIGHT CHANGE OF UNKNOWN REASONS NO . GASTROENTEROLOGY: NEW UNEXPLAINABLE CHANGES IN BOWEL CONTROL NO . CONSTIPATION NO . GENITOURINARY: ANY NEW CHANGE IN BLADDER CONTROL? NO . NEUROLOGY: NEW ONSET DIZZINESS OR NEUROLOGICAL CHANGES NOT MENTIONED NO . NEW NUMBNESS OR PAIN PATTERNS NOT MENTIONED AND PERTINENT TO TODAY'S VISIT NO . CARDIOLOGY: NEW CHEST PRESSURE NO . PATIENT DENIES NO . RESPIRATORY: UNEXPLAINABLE COUGH NO . NEW SHORTNESS OF BREATH NO . VITAL SIGNS WT 184 LBS, HT 70 IN, BMI 26.40 INDEX, BP 156/86 MM HG, HR 80 /MIN, RR 18 /MIN, TEMP 97.3 F, OXYGEN SAT % 96%, SAFE IN ENV? (Y/N) YEST.KEVIN DURAND. EXAMINATION GENERAL EXAMINATION: GENERALAWAKE,ALERT ,PLEASANT . PSYCHAFFECT NORMAL . LUNGS:LUNG WALLACE ARE CLEAR TO AUSCULTATION BILATERALLY. GOOD MOVEMENT OF AIR . HEART:S1, S2 IN A REGULAR RATE AND RHYTHM. NO SIGNIFICANT MURMURS, RUBS OR GALLOPS NOTED . ASSESSMENTS OTHER CHRONIC PAIN - G89.29 (PRIMARY) MYALGIA, OTHER SITE - M79.18 TREATMENT OTHER CHRONIC PAIN PAIN PROCEDURE LOGDATE OF PROCEDURE1PROCEDURE:TRIGGER POINT INJECTION BILATERAL THORACIC, BILATERAL LUMBARAMOUNT OF PRE SEDATEVALIUM 10MG, NORCO 5-325MGRESULT:MARKED REDUCTION IN PAIN AND IMPROVED ACTIVITY TOLERANCE NOTES: CONTINUE HOME EXERCISE PROGRAM. PATIENT WILL CALL IF PAIN RETURNS FOR REEVALUATION. PROCEDURE CODES FA211 ESTABILISHED PATIENT [facility] FAC[facility] CHARGE DISPOSITION & COMMUNICATION FOLLOW UP PATIENT WILL CALL FOR FOLLOW-UP IF NECESSARY (REASON: LOW BACK PAIN) ELECTRONICALLY SIGNED BY ANSLEY BROWNE ON 05/13/2021 AT 01:20 PM EDT DISCLAIMER : THIS IS A VISIT SUMMARY EXTRACTED FROM THE [employer] CHART. IT IS NOT A COPY OF THE [employer] PROGRESS NOTE. SHELBY
== END ==
LOC: M PAIN 10:00
PROVIDERS: ATTEND Nurse Practitioner Family
DX: G89.29 Other chronic pain (principal); M79.18 Myalgia, other site; M54.5 Low back pain; I10 Essential (primary) hypertension; G47.00 Insomnia, unspecified; E78.1 Pure hyperglyceridemia; F32.9 Major depressive disorder, single episode, unspecified; F41.9 Anxiety disorder, unspecified; F10.10 Alcohol abuse, uncomplicated; Z85.118 Personal history of other malignant neoplasm of bronchus and lung; Z87.891 Personal history of nicotine dependence; Z79.899 Other long term (current) drug therapy; E73.9 Lactose intolerance, unspecified

== ENCOUNTER → 2021-07-01 | Outpatient (CLI) | payer MEDICARE | LOC: M LABSMTC 09:40 | PROVIDERS: ATTEND Anesthesiology | DX: Z11.52 Encounter for screening for COVID-19 (principal); Z20.822 Contact with and (suspected) exposure to COVID-19 ==

== ENCOUNTER 2021-07-06 09:52 | Day surgery (SDC) | payer MEDICARE ==
[~2021-07-06] VITALS: Ht 175.3 cm; Wt 79.4 kg
[~2021-07-06 09:52] MED LIST changes: +LIDOCAINE 2% 100MG/5ML SDV (FOR ANES.) As Ordered ONE; +NS 1,000 ML IV ONE; +propofoL 200 MG/20 ML VIAL As Ordered ONE
[2021-07-06] MEDS ORDERED: PHENYLephrine 500MCG 5ML (100MCG/ML) SYRINGE As Ordered ONE (11:23)
[2021-07-06] MEDS ORDERED: propofoL 200 MG/20 ML VIAL As Ordered ONE ×2 (11:24→11:50)
[2021-07-06] MEDS ORDERED: ELEVIEW SUBMUCOSAL INJ 10ML AMP As Ordered ONE ×2 (11:27→11:30)
--- NOTE | 2021-07-06 12:05 | ROOR ---
Patient Name: Nic Bahena Procedure Date: 07/06/2021 11:04 AM Date of : 1955 Age: 66 Room: [facility] Gender: Male Note Status: Finalized Procedure: Colonoscopy Indications: High risk colon cancer surveillance: Personal history of colonic polyps Providers: Sandro Barragan MD Referring MD: Bria REYES MD Requesting Provider: Medicines: Monitored Anesthesia Care Complications: No immediate complications. Procedure: Pre-Anesthesia Assessment: - The heart rate, respiratory rate, oxygen saturations, blood pressure, adequacy of pulmonary ventilation, and response to care were monitored throughout the procedure. The Colonoscope was introduced through the anus and advanced to the terminal ileum, with identification of the appendiceal orifice and IC valve. The colonoscopy was performed without difficulty. The patient tolerated the procedure well. The quality of the bowel preparation was fair. Findings: The perianal and digital rectal examinations were normal. A 10 mm polyp was found at the ileocecal valve. The polyp was carpet-like. Area was successfully injected with 10 mL Eleview for a lift polypectomy. The polyp was removed with a piecemeal technique using a hot and cold snare. Resection and retrieval were visually complete. A 5 mm polyp was found in the splenic flexure. The polyp was sessile. The polyp was removed with a cold snare. Resection and retrieval were complete. Internal hemorrhoids were found during retroflexion. The hemorrhoids were small. Impression: - Preparation of the colon was fair. - One 10 mm flat polyp at the ileocecal valve, removed piecemeal using a hot and cold snare after injection/lift with eleview. Resected piecemeal and retrieved. - One 5 mm polyp at the splenic flexure, removed with a cold snare. Resected and retrieved. - Internal hemorrhoids. Recommendation: - Repeat colonoscopy in 2 years for surveillance after piecemeal polypectomy. Procedure Code(s): --- Professional --- 07817, Colonoscopy, flexible; with removal of tumor(s), polyp(s), or other lesion(s) by snare technique [id number], Colonoscopy, flexible; with directed submucosal injection(s), any substance Diagnosis Code(s): --- Professional --- K63.5, Polyp of colon K64.8, Other hemorrhoids Z86.010, Personal history of colonic polyps CPT copyright 2019 [employer]. All rights reserved. The codes documented in this report are preliminary and upon case sealer review may be revised to meet current compliance requirements. Sandro Barragan MD Sandro Barragan MD 07/06/2021 12:05:10 PM Electronically signed by Sandro Barragan MD Number of Addenda: 0 Note Initiated On: 07/06/2021 11:04 AM Estimated Blood Loss: Estimated blood loss: none. Estimated blood loss: none.
[2021-07-06 12:18] VITALS: BP 108/64
== END 2021-07-06 12:19 | disposition home or self-care (01) ==
LOC: M OPP 09:52
PROVIDERS: ATTEND Internal Medicine Gastroenterology
DX: Z12.11 Encounter for screening for malignant neoplasm of colon (principal); Z86.010 Personal history of colon polyps; D12.0 Benign neoplasm of cecum; D12.3 Benign neoplasm of transverse colon; K64.8 Other hemorrhoids; Z79.899 Other long term (current) drug therapy; Z88.1 Allergy status to other antibiotic agents; Z91.018 Allergy to other foods; Z87.891 Personal history of nicotine dependence
CPT/HCPCS: 45381; 45385; 88305; J2370

== ENCOUNTER → 2021-09-01 | Outpatient (REF) | payer MEDICARE ==
[~2021-09-01] MED LIST changes: -LIDOCAINE 2% 100MG/5ML SDV (FOR ANES.) As Ordered ONE; -NS 1,000 ML IV ONE; -propofoL 200 MG/20 ML VIAL As Ordered ONE
== END ==
LOC: M LAB REF 14:26
PROVIDERS: ATTEND Physician Assistant
DX: D22.72 Melanocytic nevi of left lower limb, including hip (principal)

== ENCOUNTER → 2021-12-09 | Outpatient (CLI) | payer MEDICARE ==
[~2021-12-09] MED LIST changes: +CAND32TA18 PO; -CAND32TA9 PO; +LOSA100T45 PO; -LOSA100T50 PO; +OMEP-173 PO; -OMEP-218 PO
== END ==
LOC: M SOG 07:57
PROVIDERS: ATTEND Orthopaedic Surgery Hand Surgery
DX: M79.641 Pain in right hand (principal)

== ENCOUNTER → 2022-01-15 | Outpatient (CLI) | payer MEDICARE ==
[~2022-01-15] MED LIST changes: +ISOVUE-370 76% 100ML VIAL As Ordered ONE
== END ==
LOC: M RAD 09:09
PROVIDERS: ATTEND Internal Medicine
DX: Z85.118 Personal history of other malignant neoplasm of bronchus and lung (principal)
CPT/HCPCS: 71260; Q9967

== ENCOUNTER → 2022-12-13 | Outpatient (CLI) | payer MEDICARE | LOC: M RAD 10:28 | PROVIDERS: ATTEND Internal Medicine | DX: Z85.118 Personal history of other malignant neoplasm of bronchus and lung (principal) | CPT/HCPCS: 71260; Q9967 ==

== ENCOUNTER → 2023-01-10 | Outpatient (CLI) | payer MEDICARE ==
[~2023-01-10] MED LIST changes: -ISOVUE-370 76% 100ML VIAL As Ordered ONE
== END ==
LOC: M SOG 09:50
PROVIDERS: ATTEND Physician Assistant
DX: M79.642 Pain in left hand (principal); M79.641 Pain in right hand

== ENCOUNTER 2023-04-11 06:01 | Day surgery (SDC) | payer MEDICARE ==
[~2023-04-11] VITALS: Ht 177.8 cm; Wt 88.5 kg
[~2023-04-11 06:01] MED LIST changes: -LOSA100T45 PO; +LOSA100T46 PO
[2023-04-11] MEDS ORDERED: LR 1,000 ML IV SCH (06:35)
[2023-04-11] MEDS ORDERED: LIDOCAINE W/EPINEPHRINE 1% 20ML VIAL ID ONE ×2 (06:40)
[2023-04-11] MEDS ORDERED: SODIUM BICARBONATE 8.4% INJ 50MEQ 50ML VIAL ID ONE (06:40)
[2023-04-11 08:45] VITALS: BP 143/70; TEMP 97.5; O2SAT 97
== END 2023-04-11 09:05 | disposition home or self-care (01) ==
LOC: M SDC 06:01
PROVIDERS: ATTEND Orthopaedic Surgery Hand Surgery
DX: G56.01 Carpal tunnel syndrome, right upper limb (principal); M65.321 Trigger finger, right index finger; M65.331 Trigger finger, right middle finger; M65.341 Trigger finger, right ring finger

== ENCOUNTER → 2023-10-06 | Outpatient (REF) | payer MEDICARE | LOC: M LAB REF 12:43 | PROVIDERS: ATTEND Internal Medicine | DX: R06.00 Dyspnea, unspecified (principal) ==

== ENCOUNTER → 2023-10-19 | Outpatient (CLI) | payer MEDICARE | LOC: M WUC 09:16 | PROVIDERS: ATTEND Internal Medicine | DX: R06.09 Other forms of dyspnea (principal) ==

== ENCOUNTER → 2024-01-02 | Outpatient (CLI) | payer MEDICARE ==
[~2024-01-02] MED LIST changes: +ISOVUE-370 76% 100ML VIAL As Ordered ONE
== END ==
LOC: M RAD 13:05
PROVIDERS: ATTEND Internal Medicine
DX: Z85.118 Personal history of other malignant neoplasm of bronchus and lung (principal)
CPT/HCPCS: 71260; Q9967

== ENCOUNTER 2024-02-27 06:53 | Day surgery (SDC) | payer MEDICARE ==
[~2024-02-27] VITALS: Ht 175.3 cm; Wt 88.5 kg
[~2024-02-27 06:53] MED LIST changes: +CELE1CAP99 PO; -ISOVUE-370 76% 100ML VIAL As Ordered ONE; +LIDOCAINE W/EPINEPHRINE 1% 20ML VIAL XX ONE; +META1TAB22 PO; +RANO500T2 PO; +SODIUM BICARBONATE 8.4% INJ 50MEQ 50ML VIAL XX ONE; +VARE0.5T PO
[2024-02-27] MEDS: BACITRACIN OINTMENT 30GM TUBE As Ordered ONE (08:56)
[2024-02-27 09:05] VITALS: BP 125/73; TEMP 97.8; O2SAT 97
== END 2024-02-27 09:15 | disposition home or self-care (01) ==
LOC: M SDC 06:53
PROVIDERS: ATTEND Orthopaedic Surgery Hand Surgery
DX: M65.332 Trigger finger, left middle finger (principal); Z91.011 Allergy to milk products

== ENCOUNTER → 2024-04-05 | Outpatient (CLI) | payer MEDICARE ==
[~2024-04-05] MED LIST changes: -LIDOCAINE W/EPINEPHRINE 1% 20ML VIAL XX ONE; -SODIUM BICARBONATE 8.4% INJ 50MEQ 50ML VIAL XX ONE
== END ==
LOC: M PLAIMG 13:34
PROVIDERS: ATTEND Internal Medicine
DX: R06.00 Dyspnea, unspecified (principal)

== ENCOUNTER → 2024-04-23 | Outpatient (REF) | payer MEDICARE | LOC: M LAB REF 12:21 | PROVIDERS: ATTEND Internal Medicine | DX: R06.00 Dyspnea, unspecified (principal); J44.9 Chronic obstructive pulmonary disease, unspecified; Z85.118 Personal history of other malignant neoplasm of bronchus and lung ==

== ENCOUNTER → 2024-05-01 | Outpatient (CLI) | payer MEDICARE ==
[~2024-05-01] MED LIST changes: +ISOVUE-370 76% 100ML VIAL As Ordered ONE
== END ==
LOC: M RAD 13:59
PROVIDERS: ATTEND Internal Medicine
DX: R06.02 Shortness of breath (principal)
CPT/HCPCS: 71275; Q9967

== ENCOUNTER 2024-06-13 22:13 | Emergency (ER) | payer MEDICARE ==
[~2024-06-13] VITALS: Ht 175.3 cm; Wt 90.2 kg
[~2024-06-13 22:13] MED LIST changes: +AMLO1TAB24 PO; +BUDE10.7 INH; +ENTR1TAB4 PO; -ISOVUE-370 76% 100ML VIAL As Ordered ONE
[2024-06-13 22:59] LABS: BASO # 0.1 10^3/uL (0.0-0.2); BASO % 0.7 % (0.0-1.0); EOS # 0.2 10^3/uL (0.0-0.5); HEMATOCRIT 47.1 % (42.0-52.0); LYMPH # 2.7 10^3/uL (1.5-5.0); LYMPH % 18.3 % (24.0-44.0); MEAN CORPUSCULAR HEMOGLOBIN 30.5 pg (27.0-33.0); MEAN CORPUSCULAR VOLUME 89.9 fl (80.0-96.0); MONO # 1.8 10^3/uL (0.0-0.8); MONO % 12.1 % (2.0-8.0); NEUTROPHILS % 67.5 % (36.0-66.0); PLATELET COUNT, AUTOMATED 250 10^3/uL (150-450); RED BLOOD COUNT 5.24 10^6/uL (4.30-6.10); WHITE BLOOD COUNT 14.8 10^3/uL (4.0-10.0)
[2024-06-13 23:13] LABS: INR 1.11; PROTHROMBIN TIME 13.9 SECONDS (12.5-14.5)
[2024-06-13] MEDS: NS 500 ML IV ONE (23:15)
[2024-06-13] MEDS: METOPROLOL 5 MG/5 ML VIAL IV SCH (23:20)
[2024-06-13 23:24] LABS: ALBUMIN 3.4 G/DL (3.2-5.2); BILIRUBIN,DIRECT 0.3 MG/DL (<0.4); BILIRUBIN,TOTAL 0.8 MG/DL (0.3-1.2); CALCIUM LEVEL 9.2 MG/DL (8.3-10.6); CK-MB VALUE MASS 1.1 NG/ML (<3.6); CREATININE FOR GFR 1.3 MG/DL (0.70-1.30); GLOMERULAR FILTRATION RATE 58.3 (>49); POTASSIUM SERUM 3.5 MMOL/L (3.5-5.1); TOTAL PROTEIN 6.2 G/DL (5.7-8.2)
[2024-06-13 23:41] VITALS: BP 104/61
[2024-06-13 23:57] LABS: MB/CK RELATIVE INDEX 2.29 (< OR =4)
[2024-06-14 00:33] LABS: CK-MB VALUE MASS 1.7 NG/ML (<3.6); MB/CK RELATIVE INDEX 3.69 (< OR =4)
[2024-06-14 01:30] VITALS: BP 105/74
[2024-06-14 01:31] VITALS: TEMP 98.4; O2SAT 95
[2024-06-14 03:02] LABS: MAGNESIUM LEVEL 1.9 MG/DL (1.8-2.4)
[2024-06-15] MEDS ORDERED: METO1TAB32 PO (11:07)
[2024-06-15] MEDS ORDERED: ATOR1TAB19 PO (11:07)
[2024-06-15] MEDS ORDERED: ASPI81TA26 PO (11:11)
[2024-06-15] MEDS ORDERED: ACET-897 PO (11:11)
== END 2024-06-14 01:22 | disposition home or self-care (01) ==
LOC: M ED 22:13
DX: I47.10 Supraventricular tachycardia, unspecified (principal); I44.0 Atrioventricular block, first degree; I44.7 Left bundle-branch block, unspecified; K21.9 Gastro-esophageal reflux disease without esophagitis; F17.200 Nicotine dependence, unspecified, uncomplicated; Z86.79 Personal history of other diseases of the circulatory system; Z91.011 Allergy to milk products; Z79.82 Long term (current) use of aspirin; Z79.02 Long term (current) use of antithrombotics/antiplatelets; Z79.899 Other long term (current) drug therapy

== ENCOUNTER → 2024-06-14 | Outpatient (REF) | payer MEDICARE ==
[~2024-06-14] MED LIST changes: +ACET-897 PO; +ASPI81TA26 PO; +METO1TAB32 PO
== END ==
LOC: M LAB REF 16:33
PROVIDERS: ATTEND Internal Medicine
DX: I49.3 Ventricular premature depolarization (principal); I50.42 Chronic combined systolic (congestive) and diastolic (congestive) heart failure

== ENCOUNTER 2024-06-15 07:47 | Inpatient (IN) | payer MEDICARE ==
[~2024-06-15] VITALS: Ht 175.3 cm; Wt 87.4 kg
[2024-06-15] VITALS (9 sets, daily range): BP systolic 85–122; BP diastolic 49–93; TEMP 97.4–97.9; O2SAT 95–98
[~2024-06-15 07:47] MED LIST changes: -ACET-897 PO; -ASPI81TA26 PO; -METO1TAB32 PO
[2024-06-15] MEDS ORDERED: METOPROLOL 5 MG/5 ML VIAL As Ordered ONE (07:58)
[2024-06-15] MEDS: METOPROLOL 5 MG/5 ML VIAL IV STA (08:03)
[2024-06-15] MEDS: FUROSEMIDE 40MG/4ML VIAL IV ONE (08:03)
[2024-06-15] MEDS: LIDOCAINE 2% 5ML JELLY UROJET TOP ONE (08:10)
[2024-06-15 08:12] LABS: BASO # 0.2 10^3/uL (0.0-0.2); BASO % 0.9 % (0.0-1.0); EOS # 0.3 10^3/uL (0.0-0.5); EOS % 1.5 % (0.0-3.0); HEMATOCRIT 54.5 % (42.0-52.0); HEMOGLOBIN 17.3 g/dl (13.5-17.5); LYMPH # 8.8 10^3/uL (1.5-5.0); LYMPH % 38.5 % (24.0-44.0); MEAN CORPUSCULAR HEMOGLOBIN 30.2 pg (27.0-33.0); MEAN CORPUSCULAR HGB CONC 31.7 g/dl (32.0-36.5); MEAN CORPUSCULAR VOLUME 95.1 fl (80.0-96.0); MONO # 2.1 10^3/uL (0.0-0.8); NEUTROPHILS # 11.4 10^3/uL (1.5-8.5); NEUTROPHILS % 49.7 % (36.0-66.0); PLATELET COUNT, AUTOMATED 331 10^3/uL (150-450); RED BLOOD COUNT 5.73 10^6/uL (4.30-6.10); WHITE BLOOD COUNT 22.9 10^3/uL (4.0-10.0)
[2024-06-15 08:28] LABS: ABG BASE EXCESS -10.1 (-2.0-2.0); ABG HCO3 22.7 MMOL/L (22.0-26.0); ABG O2 SATURATION 95.3 % (95.0-99.0); ABG PARTIAL PRESSURE O2 103.8 mmHg (75.0-100.0); ABG STANDARD HCO3 16.7 MMOL/L. (22.0-26.0); ABG TOTAL CO2 25.1 MMOL/L (23.0-31.0)
[2024-06-15 08:37] LABS: ABG PARTIAL PRESSURE CO2 81.1 mmHg (35.0-45.0); ABG pH (ARTERIAL) 7.064 UNITS (7.350-7.450)
[2024-06-15] MEDS: NITROGLYCERIN 2% OINT 1 GM *U/D* PKT TOP ONE (09:15)
[2024-06-15] MEDS ORDERED: ISOVUE-370 76% 100ML VIAL As Ordered ONE (09:23)
[2024-06-15 09:36] LABS: CK-MB VALUE MASS 2.9 NG/ML (<3.6)
[2024-06-15 10:00] LABS: CREATININE FOR GFR 1.36 MG/DL (0.70-1.30); GLOMERULAR FILTRATION RATE 55.3 (>49); MAGNESIUM LEVEL 2.1 MG/DL (1.8-2.4); MB/CK RELATIVE INDEX 4.6 (< OR =4); POTASSIUM SERUM 5.2 MMOL/L (3.5-5.1)
[2024-06-15 10:23] LABS: ABG BASE EXCESS -6.3 (-2.0-2.0); ABG HCO3 22.3 MMOL/L (22.0-26.0); ABG O2 SATURATION 97.1 % (95.0-99.0); ABG PARTIAL PRESSURE CO2 55.4 mmHg (35.0-45.0); ABG PARTIAL PRESSURE O2 102.5 mmHg (75.0-100.0); ABG STANDARD HCO3 19.4 MMOL/L. (22.0-26.0)
[2024-06-15] MEDS: cefTRIAXone SOD 2 GM in D5W MINI-BAG PLUS 50 ML IV ONE (10:23)
[2024-06-15 10:28] LABS: ABG pH (ARTERIAL) 7.222 UNITS (7.350-7.450)
[2024-06-15] MEDS ORDERED: ATOR1TAB19 PO (11:07)
[2024-06-15] MEDS ORDERED: METO1TAB32 PO (11:07)
[2024-06-15] MEDS ORDERED: HOME MED LIST COMPLETE! XX SCH (11:10)
[2024-06-15] MEDS ORDERED: ASPI81TA26 PO (11:11)
[2024-06-15] MEDS ORDERED: ACET-897 PO (11:11)
[2024-06-15] MEDS ORDERED: ACETAMINOPHEN 500 MG TAB PO PRN (13:35)
[2024-06-15 13:58] LABS: VENOUS HCO3 23.8 MMOL/L (23.0-27.0); VENOUS O2 SATURATION 98.6 % (60.0-80.0); VENOUS PARTIAL PRESSURE CO2 48.2 mmHg (38.0-50.0); VENOUS PARTIAL PRESSURE O2 136.8 mmHg (30.0-50.0); VENOUS PH 7.312 UNITS (7.330-7.430); VENOUS STANDARD HCO3 22.1 MMOL/L; VENOUS TOTAL CO2 25.3 MMOL/L (24.0-28.0)
[2024-06-15 14:34] LABS: ALBUMIN 3.5 G/DL (3.2-5.2); ALKALINE PHOSPHATASE 72 U/L (46-116); ALT/SGPT 34 U/L (7.0-40); AST/SGOT 25 U/L (<34); BILIRUBIN,TOTAL 0.6 MG/DL (0.3-1.2); BLOOD UREA NITROGEN 19 MG/DL (9-23); CARBON DIOXIDE LEVEL 23 MMOL/L (20-31); CHLORIDE LEVEL 107 MMOL/L (98-107); CREATININE FOR GFR 1.21 MG/DL (0.70-1.30); GLOMERULAR FILTRATION RATE > 60.0 (>49); GLUCOSE, FASTING 94 MG/DL (74-106); MAGNESIUM LEVEL 1.8 MG/DL (1.8-2.4); PHOSPHORUS LEVEL 4.2 MG/DL (2.4-5.1); POTASSIUM SERUM 4.5 MMOL/L (3.5-5.1); SODIUM LEVEL 138 MMOL/L (136-145); TOTAL PROTEIN 6.5 G/DL (5.7-8.2)
[2024-06-15 14:36] LABS: FREE T4 1.67 NG/DL (0.89-1.76); THYROID STIMULATING HORMONE 0.607 uIU/ML (0.55-4.78)
[2024-06-15] MEDS: OMEPRAZOLE 20MG CAP PO SCH (15:30)
[2024-06-15] MEDS: HEPARIN SOD (PORCINE) 5000UNITS/ML 1ML VIAL/SYRINGE SC SCH (15:50)
[2024-06-15] MEDS: ASPIRIN 81MG ENTERIC TABLET PO SCH (15:50)
[2024-06-15] MEDS ORDERED: ONDANSETRON 4MG 2ML VIAL IV PRN (16:05)
[2024-06-15] MEDS ORDERED: ONDANSETRON 4MG 2ML VIAL As Ordered ONE (16:21)
[2024-06-15] MEDS: ONDANSETRON 4MG 2ML VIAL IV ONE (17:15)
[2024-06-15] MEDS: AZITHROMYCIN 250MG TABLET PO SCH (17:38)
[2024-06-15] MEDS: AZITHROMYCIN INJ 500 MG, VIAL MATE ADAPTER 1 EACH in NS 250 ML IV ONE (18:28)
[2024-06-15] MEDS ORDERED: PILL CUTTER 1 EACH XX PRN (18:35)
[2024-06-15] MEDS: VARENICLINE 1MG TABLET PO SCH (18:47)
[2024-06-15] MEDS: SYMBICORT 160/4.5MCG INHALER 6GM INH SCH (19:31)
[2024-06-15] MEDS: GLYCOPYRROLATE INJ 0.2 MG/ML 2 ML VIAL NEB SCH (19:31)
[2024-06-15] MEDS: METOPROLOL SUCC *XL* 25MG TAB (TopROL *XL*) PO SCH (20:28)
[2024-06-15] MEDS: ATORVASTATIN 10 MG TAB PO SCH (20:30)
[2024-06-15] MEDS: zolPIDEM TARTRATE 5 MG TAB PO PRN (21:58)
[2024-06-16] VITALS (33 sets, daily range): BP systolic 83–123; BP diastolic 52–68; TEMP 98–98.6; O2SAT 86–99
[2024-06-16 05:17] LABS: BASO % 0.2 % (0.0-1.0); HEMATOCRIT 42.8 % (42.0-52.0); LYMPH # 1.5 10^3/uL (1.5-5.0); LYMPH % 8.1 % (24.0-44.0); MEAN CORPUSCULAR HEMOGLOBIN 30.5 pg (27.0-33.0); MEAN CORPUSCULAR HGB CONC 33.9 g/dl (32.0-36.5); MEAN CORPUSCULAR VOLUME 90.1 fl (80.0-96.0); MONO # 1.6 10^3/uL (0.0-0.8); MONO % 8.8 % (2.0-8.0); NEUTROPHILS # 15.4 10^3/uL (1.5-8.5); NEUTROPHILS % 82.4 % (36.0-66.0); PLATELET COUNT, AUTOMATED 243 10^3/uL (150-450); RED BLOOD COUNT 4.75 10^6/uL (4.30-6.10); WHITE BLOOD COUNT 18.7 10^3/uL (4.0-10.0)
[2024-06-16 05:19] LABS: HEMOGLOBIN 14.5 g/dl (13.5-17.5)
[2024-06-16 05:48] LABS: ALBUMIN 2.8 G/DL (3.2-5.2); ALKALINE PHOSPHATASE 48 U/L (46-116); ALT/SGPT 24 U/L (7.0-40); AST/SGOT 22 U/L (<34); BLOOD UREA NITROGEN 23 MG/DL (9-23); CALCIUM LEVEL 8.4 MG/DL (8.3-10.6); CARBON DIOXIDE LEVEL 25 MMOL/L (20-31); CHLORIDE LEVEL 107 MMOL/L (98-107); CREATININE FOR GFR 1.24 MG/DL (0.70-1.30); GLOMERULAR FILTRATION RATE > 60.0 (>49); GLUCOSE, FASTING 89 MG/DL (74-106); MAGNESIUM LEVEL 1.8 MG/DL (1.8-2.4); SODIUM LEVEL 137 MMOL/L (136-145); TOTAL PROTEIN 5.3 G/DL (5.7-8.2)
[2024-06-16] MEDS: ACETAMINOPHEN *IV* 1,000 MG in IV 1 EA IV ONE (08:11)
[2024-06-16] MEDS: FUROSEMIDE 20MG/2ML VIAL IV ONE ×2 (08:14→14:35)
[2024-06-16] MEDS: MAG SULF 1GM/100ML (MAG RUN) 1 GM in IV 1 EA IV ONE ×2 (08:38→17:54)
[2024-06-16] MEDS: cefTRIAXone SOD 1 GM in D5W MINI-BAG PLUS 50 ML IV SCH (09:38)
[2024-06-16] MEDS: SIMETHICONE 80MG CHEW TAB PO PRN (15:17)
[2024-06-16] MEDS: AZITHROMYCIN 250MG TABLET PO SCH (17:54)
[2024-06-16] MEDS: METOPROLOL SUCC *XL* 25MG TAB (TopROL *XL*) PO SCH (17:55)
[2024-06-16 21:00] LABS: BLOOD UREA NITROGEN 19 MG/DL (9-23); CALCIUM LEVEL 8.7 MG/DL (8.3-10.6); CARBON DIOXIDE LEVEL 30 MMOL/L (20-31); CHLORIDE LEVEL 105 MMOL/L (98-107); CREATININE FOR GFR 1.07 MG/DL (0.70-1.30); GLOMERULAR FILTRATION RATE > 60.0 (>49); GLUCOSE, FASTING 88 MG/DL (74-106); MAGNESIUM LEVEL 2.2 MG/DL (1.8-2.4); POTASSIUM SERUM 3.9 MMOL/L (3.5-5.1); SODIUM LEVEL 137 MMOL/L (136-145)
[2024-06-17] VITALS (24 sets, daily range): BP systolic 85–142; BP diastolic 54–98; TEMP 98–98.4; O2SAT 91–98
[2024-06-17 05:32] LABS: ALBUMIN 2.7 G/DL (3.2-5.2); ALKALINE PHOSPHATASE 44 U/L (46-116); ALT/SGPT 22 U/L (7.0-40); AST/SGOT 23 U/L (<34); BILIRUBIN,TOTAL 0.9 MG/DL (0.3-1.2); BLOOD UREA NITROGEN 18 MG/DL (9-23); CALCIUM LEVEL 8.6 MG/DL (8.3-10.6); CARBON DIOXIDE LEVEL 29 MMOL/L (20-31); CHLORIDE LEVEL 103 MMOL/L (98-107); CREATININE FOR GFR 0.94 MG/DL (0.70-1.30); GLOMERULAR FILTRATION RATE > 60.0 (>49); GLUCOSE, FASTING 94 MG/DL (74-106); MAGNESIUM LEVEL 2.2 MG/DL (1.8-2.4); POTASSIUM SERUM 4.2 MMOL/L (3.5-5.1); SODIUM LEVEL 136 MMOL/L (136-145); TOTAL PROTEIN 5.5 G/DL (5.7-8.2)
[2024-06-17] MEDS: MAG SULF 1GM/100ML (MAG RUN) 1 GM in IV 1 EA IV ONE (09:00)
[2024-06-17] MEDS: ENOXAPARIN 40MG/0.4ML SYRINGE (J1650 PER 10MG) SC SCH (09:28)
[2024-06-17] MEDS: METOPROLOL SUCC *XL* 25MG TAB (TopROL *XL*) PO SCH (09:29)
[2024-06-17] MEDS: FUROSEMIDE 20MG/2ML VIAL IV SCH (09:29)
[2024-06-17 20:39] LABS: BASO % 0.2 % (0.0-1.0); EOS # 0.1 10^3/uL (0.0-0.5); EOS % 0.4 % (0.0-3.0); HEMATOCRIT 44.3 % (42.0-52.0); HEMOGLOBIN 14.9 g/dl (13.5-17.5); LYMPH # 1.7 10^3/uL (1.5-5.0); LYMPH % 12.7 % (24.0-44.0); MEAN CORPUSCULAR HEMOGLOBIN 30.3 pg (27.0-33.0); MEAN CORPUSCULAR HGB CONC 33.6 g/dl (32.0-36.5); MEAN CORPUSCULAR VOLUME 90.2 fl (80.0-96.0); MONO # 1.5 10^3/uL (0.0-0.8); MONO % 11.1 % (2.0-8.0); NEUTROPHILS # 9.9 10^3/uL (1.5-8.5); NEUTROPHILS % 75.1 % (36.0-66.0); PLATELET COUNT, AUTOMATED 224 10^3/uL (150-450); RED BLOOD COUNT 4.91 10^6/uL (4.30-6.10); WHITE BLOOD COUNT 13.2 10^3/uL (4.0-10.0)
[2024-06-17 21:04] LABS: BLOOD UREA NITROGEN 18 MG/DL (9-23); CALCIUM LEVEL 8.5 MG/DL (8.3-10.6); CARBON DIOXIDE LEVEL 32 MMOL/L (20-31); CHLORIDE LEVEL 104 MMOL/L (98-107); CREATININE FOR GFR 1.03 MG/DL (0.70-1.30); GLOMERULAR FILTRATION RATE > 60.0 (>49); GLUCOSE, FASTING 124 MG/DL (74-106); MAGNESIUM LEVEL 2.1 MG/DL (1.8-2.4); PHOSPHORUS LEVEL 2.3 MG/DL (2.4-5.1); POTASSIUM SERUM 3.6 MMOL/L (3.5-5.1); SODIUM LEVEL 139 MMOL/L (136-145)
[2024-06-18] VITALS (16 sets, daily range): BP systolic 95–138; BP diastolic 56–77; TEMP 97.3–98.2; O2SAT 91–97
[2024-06-18 05:15] LABS: BASO # 0.1 10^3/uL (0.0-0.2); BASO % 0.4 % (0.0-1.0); EOS # 0.1 10^3/uL (0.0-0.5); EOS % 0.8 % (0.0-3.0); HEMATOCRIT 42.7 % (42.0-52.0); HEMOGLOBIN 14.2 g/dl (13.5-17.5); LYMPH # 1.6 10^3/uL (1.5-5.0); LYMPH % 13.8 % (24.0-44.0); MEAN CORPUSCULAR HGB CONC 33.3 g/dl (32.0-36.5); MEAN CORPUSCULAR VOLUME 90.3 fl (80.0-96.0); MONO # 1.4 10^3/uL (0.0-0.8); MONO % 12.1 % (2.0-8.0); NEUTROPHILS # 8.5 10^3/uL (1.5-8.5); NEUTROPHILS % 72.6 % (36.0-66.0); PLATELET COUNT, AUTOMATED 218 10^3/uL (150-450); RED BLOOD COUNT 4.73 10^6/uL (4.30-6.10); WHITE BLOOD COUNT 11.7 10^3/uL (4.0-10.0)
[2024-06-18 05:36] LABS: ALBUMIN 2.7 G/DL (3.2-5.2); ALKALINE PHOSPHATASE 43 U/L (46-116); ALT/SGPT 18 U/L (7.0-40); AST/SGOT 11 U/L (<34); BLOOD UREA NITROGEN 18 MG/DL (9-23); CALCIUM LEVEL 8.6 MG/DL (8.3-10.6); CARBON DIOXIDE LEVEL 31 MMOL/L (20-31); CHLORIDE LEVEL 102 MMOL/L (98-107); CREATININE FOR GFR 0.91 MG/DL (0.70-1.30); GLOMERULAR FILTRATION RATE > 60.0 (>49); GLUCOSE, FASTING 85 MG/DL (74-106); POTASSIUM SERUM 3.5 MMOL/L (3.5-5.1); SODIUM LEVEL 137 MMOL/L (136-145); TOTAL PROTEIN 5.6 G/DL (5.7-8.2)
[2024-06-18] MEDS: FUROSEMIDE 20MG/2ML VIAL IV SCH (07:55)
[2024-06-18] MEDS: MAG SULF 1GM/100ML (MAG RUN) 1 GM in IV 1 EA IV ONE (07:56)
[2024-06-18] MEDS: METOPROLOL SUCC *XL* 25MG TAB (TopROL *XL*) PO SCH (08:07)
[2024-06-18] MEDS ORDERED: METOPROLOL SUCC (TopROL XL) 50MG **XL** TAB PO SCH (09:00)
[2024-06-18] MEDS: POTASSIUM PHOSPHATE INJ 15 MMOL in D5W 250 ML IV ONE (10:03)
[2024-06-18 20:50] LABS: BLOOD UREA NITROGEN 18 MG/DL (9-23); CALCIUM LEVEL 8.8 MG/DL (8.3-10.6); CARBON DIOXIDE LEVEL 31 MMOL/L (20-31); CHLORIDE LEVEL 103 MMOL/L (98-107); GLOMERULAR FILTRATION RATE > 60.0 (>49); GLUCOSE, FASTING 126 MG/DL (74-106); MAGNESIUM LEVEL 2.1 MG/DL (1.8-2.4); POTASSIUM SERUM 3.3 MMOL/L (3.5-5.1); SODIUM LEVEL 139 MMOL/L (136-145)
[2024-06-18] MEDS: POTASSIUM CHLORIDE 10MEQ SR TABLET PO ONE (21:34)
[2024-06-18] MEDS: KCL 10MEQ/100ML SWI (KRUN) 10 MEQ in IV 1 EA IV SCH (21:36)
[2024-06-19] VITALS (11 sets, daily range): BP systolic 121–135; BP diastolic 75–86; TEMP 97.3–98.3; O2SAT 91–96
[2024-06-19 05:31] LABS: ALBUMIN 2.8 G/DL (3.2-5.2); ALKALINE PHOSPHATASE 46 U/L (46-116); ALT/SGPT 25 U/L (7.0-40); AST/SGOT 16 U/L (<34); BILIRUBIN,TOTAL 1.2 MG/DL (0.3-1.2); BLOOD UREA NITROGEN 15 MG/DL (9-23); CALCIUM LEVEL 8.6 MG/DL (8.3-10.6); CARBON DIOXIDE LEVEL 33 MMOL/L (20-31); CHLORIDE LEVEL 101 MMOL/L (98-107); CREATININE FOR GFR 0.94 MG/DL (0.70-1.30); GLOMERULAR FILTRATION RATE > 60.0 (>49); GLUCOSE, FASTING 91 MG/DL (74-106); POTASSIUM SERUM 3.5 MMOL/L (3.5-5.1); SODIUM LEVEL 137 MMOL/L (136-145); TOTAL PROTEIN 5.9 G/DL (5.7-8.2)
[2024-06-19] MEDS: MAG SULF 1GM/100ML (MAG RUN) 1 GM in IV 1 EA IV ONE (08:05)
[2024-06-19] MEDS: FUROSEMIDE 40MG/4ML VIAL IV ONE ×2 (08:05→20:06)
[2024-06-19] MEDS: POTASSIUM CHLORIDE 10MEQ SR TABLET PO ONE ×3 (09:10→20:06)
[2024-06-19 19:10] LABS: BLOOD UREA NITROGEN 15 MG/DL (9-23); CALCIUM LEVEL 8.9 MG/DL (8.3-10.6); CARBON DIOXIDE LEVEL 32 MMOL/L (20-31); CHLORIDE LEVEL 101 MMOL/L (98-107); CREATININE FOR GFR 0.88 MG/DL (0.70-1.30); GLOMERULAR FILTRATION RATE > 60.0 (>49); GLUCOSE, FASTING 133 MG/DL (74-106); POTASSIUM SERUM 3.4 MMOL/L (3.5-5.1); SODIUM LEVEL 136 MMOL/L (136-145)
[2024-06-20] VITALS (8 sets, daily range): BP systolic 106–145; BP diastolic 55–83; TEMP 97.5–99.6; O2SAT 92–97
[2024-06-20] MEDS: CEFDINIR 300 MG CAP (OMNICEF) PO SCH (08:02)
[2024-06-20] MEDS: SPIRONOLACTONE 12.5MG PER 1/2 TABLET PO SCH (09:00)
[2024-06-20] MEDS: POTASSIUM CHLORIDE 10MEQ SR TABLET PO SCH (09:21)
[2024-06-20] MEDS: DAPAGLIFLOZIN PROPANEDIOL 10MG TABLET (FARXIGA) PO SCH (10:38)
[2024-06-20] MEDS: PREVNAR-20 VACCINE 0.5ML SYRINGE IM.IMMUN ONE (10:39)
[2024-06-20] MEDS ORDERED: METO1TAB32 PO (13:43)
[2024-06-20] MEDS ORDERED: FARX1TAB3 PO (13:43)
[2024-06-20] MEDS ORDERED: CEFD300CAP PO (13:43)
[2024-06-20] MEDS ORDERED: ENTR1TAB PO (13:43)
[2024-06-20] MEDS ORDERED: POTA-151 PO (13:43)
[2024-06-20] MEDS ORDERED: ALDA25TA2 PO (13:43)
[2024-06-20] MEDS: ENTRESTO 24-26MG TABLET (SACUBITRIL/VALSARTAN) PO SCH (20:51)
[2024-06-20] MEDS: POTASSIUM CHLORIDE 10MEQ SR TABLET PO ONE (20:51)
[2024-06-21 03:19] VITALS: BP 124/71; TEMP 98.1; O2SAT 94
[2024-06-21 05:27] LABS: BASO # 0.1 10^3/uL (0.0-0.2); BASO % 0.7 % (0.0-1.0); EOS # 0.3 10^3/uL (0.0-0.5); EOS % 2.6 % (0.0-3.0); HEMATOCRIT 46.6 % (42.0-52.0); HEMOGLOBIN 15.9 g/dl (13.5-17.5); LYMPH # 2.2 10^3/uL (1.5-5.0); LYMPH % 18.3 % (24.0-44.0); MEAN CORPUSCULAR HEMOGLOBIN 30.1 pg (27.0-33.0); MEAN CORPUSCULAR HGB CONC 34.1 g/dl (32.0-36.5); MEAN CORPUSCULAR VOLUME 88.3 fl (80.0-96.0); MONO # 1.7 10^3/uL (0.0-0.8); NEUTROPHILS # 7.7 10^3/uL (1.5-8.5); NEUTROPHILS % 64.2 % (36.0-66.0); PLATELET COUNT, AUTOMATED 267 10^3/uL (150-450); RED BLOOD COUNT 5.28 10^6/uL (4.30-6.10); WHITE BLOOD COUNT 12.1 10^3/uL (4.0-10.0)
[2024-06-21 06:00] LABS: BLOOD UREA NITROGEN 14 MG/DL (9-23); CALCIUM LEVEL 9.5 MG/DL (8.3-10.6); CARBON DIOXIDE LEVEL 29 MMOL/L (20-31); CHLORIDE LEVEL 106 MMOL/L (98-107); CREATININE FOR GFR 0.93 MG/DL (0.70-1.30); GLOMERULAR FILTRATION RATE > 60.0 (>49); GLUCOSE, FASTING 97 MG/DL (74-106); PHOSPHORUS LEVEL 3.4 MG/DL (2.4-5.1); POTASSIUM SERUM 4.2 MMOL/L (3.5-5.1); SODIUM LEVEL 139 MMOL/L (136-145)
[2024-06-21 07:33] VITALS: BP 122/80; TEMP 97.9; O2SAT 94
== END 2024-06-21 11:29 | disposition home health service (06) | DRG 189 ==
LOC: EDBD 07:47 → M ED 07:47 → M ED INP 13:14 → M ICU 15:30 → M PCU 06-20 03:41
PROVIDERS: ADMIT Internal Medicine Pulmonary Disease; ATTEND Hospitalist
PROC: B246ZZZ Ultrasonography of Right and Left Heart (ICD-10-PCS; principal; 2024-06-17)
DX: J96.01 Acute respiratory failure with hypoxia (principal); I50.43 Acute on chronic combined systolic (congestive) and diastolic (congestive) heart failure; J18.9 Pneumonia, unspecified organism; I21.A1 Myocardial infarction type 2; J44.0 Chronic obstructive pulmonary disease with (acute) lower respiratory infection; N17.9 Acute kidney failure, unspecified; I47.20 Ventricular tachycardia, unspecified; I48.92 Unspecified atrial flutter; I42.0 Dilated cardiomyopathy; I44.7 Left bundle-branch block, unspecified; E73.9 Lactose intolerance, unspecified; F17.210 Nicotine dependence, cigarettes, uncomplicated; J96.02 Acute respiratory failure with hypercapnia; E87.5 Hyperkalemia; Z79.82 Long term (current) use of aspirin; Z79.899 Other long term (current) drug therapy; Z85.118 Personal history of other malignant neoplasm of bronchus and lung; Z90.2 Acquired absence of lung [part of]; I48.91 Unspecified atrial fibrillation; K21.9 Gastro-esophageal reflux disease without esophagitis; G47.00 Insomnia, unspecified

== ENCOUNTER → 2024-08-28 | Outpatient (REF) | payer MEDICARE ==
[~2024-08-28] MED LIST changes: +ACET-897 PO; +ALDA25TA2 PO; +ASPI81TA26 PO; +CEFD300CAP PO; +ENTR1TAB PO; +FARX1TAB3 PO; +META-10 PO; -META1TAB22 PO; +METO1TAB32 PO; +POTA-151 PO
== END ==
LOC: M LAB REF 17:39
PROVIDERS: ATTEND Internal Medicine
DX: I50.20 Unspecified systolic (congestive) heart failure (principal)

== ENCOUNTER 2024-09-06 10:52 | Inpatient (IN) | payer MEDICARE ==
[2024-09-06] VITALS (11 sets, daily range): BP systolic 102–103; BP diastolic 54–63; TEMP 97.6–97.7; O2SAT 94–97
[~2024-09-06] VITALS: Ht 175.3 cm; Wt 87.3 kg
[2024-09-06 11:34] LABS: BASO # 0.1 10^3/uL (0.0-0.2); BASO % 0.7 % (0.0-1.0); EOS # 0.2 10^3/uL (0.0-0.5); EOS % 1.8 % (0.0-3.0); HEMATOCRIT 51.7 % (42.0-52.0); HEMOGLOBIN 17.5 g/dl (13.5-17.5); LYMPH # 2.3 10^3/uL (1.5-5.0); MEAN CORPUSCULAR HEMOGLOBIN 29.8 pg (27.0-33.0); MEAN CORPUSCULAR HGB CONC 33.8 g/dl (32.0-36.5); MEAN CORPUSCULAR VOLUME 87.9 fl (80.0-96.0); MONO # 0.9 10^3/uL (0.0-0.8); MONO % 9.2 % (2.0-8.0); NEUTROPHILS # 6.5 10^3/uL (1.5-8.5); PLATELET COUNT, AUTOMATED 271 10^3/uL (150-450); RED BLOOD COUNT 5.88 10^6/uL (4.30-6.10)
[2024-09-06 11:49] LABS: INR 1.08; PARTIAL THROMBOPLASTIN TIME 38.5 SECONDS (24.8-34.2); PROTHROMBIN TIME 14.3 SECONDS (12.5-14.5)
[2024-09-06 12:00] LABS: LIPASE 25 U/L (12-53)
[2024-09-06 12:02] LABS: ALKALINE PHOSPHATASE 65 U/L (40-129); ALT/SGPT 31 U/L (7.0-40); AST/SGOT 12 U/L (<34); BILIRUBIN,DIRECT 0.3 MG/DL (<0.4); BILIRUBIN,TOTAL 0.9 MG/DL (0.3-1.2); BLOOD UREA NITROGEN 25 MG/DL (9-23); CALCIUM LEVEL 9.7 MG/DL (8.3-10.6); CARBON DIOXIDE LEVEL 30 MMOL/L (20-31); CHLORIDE LEVEL 102 MMOL/L (98-107); CK-MB VALUE MASS 1.7 NG/ML (<3.6); CPK CREATINE PHOSPHOKINASE 46 U/L (46-171); CREATININE FOR GFR 1.14 MG/DL (0.70-1.30); GLOMERULAR FILTRATION RATE > 60.0 (>49); GLUCOSE, FASTING 101 MG/DL (74-106); MB/CK RELATIVE INDEX 3.69 (< OR =4); POTASSIUM SERUM 4.1 MMOL/L (3.5-5.1); SODIUM LEVEL 137 MMOL/L (136-145); TOTAL PROTEIN 7.7 G/DL (5.7-8.2)
[2024-09-06 12:03] LABS: THYROID STIMULATING HORMONE 1.169 uIU/ML (0.55-4.78)
[2024-09-06 12:04] LABS: FREE T4 1.67 NG/DL (0.89-1.76)
[2024-09-06] MEDS ORDERED: METO1TAB32 PO (12:10)
[2024-09-06] MEDS ORDERED: IPRA3SP (12:10)
[2024-09-06] MEDS ORDERED: ENTR1TAB PO (12:10)
[2024-09-06] MEDS ORDERED: FARX1TAB3 PO (12:10)
[2024-09-06] MEDS ORDERED: TORS20TA2 PO (12:10)
[2024-09-06] MEDS ORDERED: HOME MED LIST COMPLETE! XX SCH (12:10)
[2024-09-06] MEDS ORDERED: D3 H2000 PO (12:10)
[2024-09-06] MEDS ORDERED: ELIQ5TAB PO (12:10)
[2024-09-06] MEDS ORDERED: ACET-1349 PO (12:10)
[2024-09-06 13:04] LABS: CK-MB VALUE MASS 1.3 NG/ML (<3.6); MB/CK RELATIVE INDEX 3.33 (< OR =4)
[2024-09-06] MEDS ORDERED: AMIODARONE 150MG/3ML VIAL XX STA (14:12)
[2024-09-06] MEDS ORDERED: AMIODARONE HCL 150 MG in IV 1 EA IV STA (14:36)
[2024-09-06] MEDS: AMIODARONE HCL 150 MG in IV 1 EA IV ONE (14:42)
[2024-09-06] MEDS: AMIODARONE HCL 360 MG in IV 1 EA IV SCH ×2 (16:08→22:23)
[2024-09-06] MEDS: FUROSEMIDE 40MG/4ML VIAL IV ONE (17:44)
[2024-09-06] MEDS ORDERED: ONDANSETRON 4MG 2ML VIAL IV PRN (17:50)
[2024-09-06] MEDS: ADVAIR HFA 230/21MCG INHALER INH SCH (20:00)
[2024-09-06] MEDS: ATORVASTATIN 10 MG TAB PO SCH (20:09)
[2024-09-06] MEDS: APIXABAN 5 MG TAB (ELIQUIS) PO SCH (20:09)
[2024-09-06] MEDS: METOPROLOL SUCC *XL* 25MG TAB (TopROL *XL*) PO SCH (20:10)
[2024-09-06] MEDS: ENTRESTO 24-26MG TABLET (SACUBITRIL/VALSARTAN) PO SCH (21:13)
[2024-09-06] MEDS: zolPIDEM TARTRATE 5 MG TAB PO SCH (21:14)
[2024-09-07] VITALS (25 sets, daily range): BP systolic 108–135; BP diastolic 54–80; TEMP 97–98.5; O2SAT 93–100
[2024-09-07] MEDS ORDERED: ALBUTEROL SULFATE 2.5MG/0.5ML INH NEB SOLN NEB PRN (02:10)
[2024-09-07 06:09] LABS: BASO # 0.1 10^3/uL (0.0-0.2); BASO % 0.4 % (0.0-1.0); EOS # 0.2 10^3/uL (0.0-0.5); EOS % 1.1 % (0.0-3.0); HEMATOCRIT 49.9 % (42.0-52.0); HEMOGLOBIN 16.9 g/dl (13.5-17.5); LYMPH # 2.7 10^3/uL (1.5-5.0); MEAN CORPUSCULAR HEMOGLOBIN 29.8 pg (27.0-33.0); MEAN CORPUSCULAR HGB CONC 33.9 g/dl (32.0-36.5); MEAN CORPUSCULAR VOLUME 87.9 fl (80.0-96.0); MONO # 1.6 10^3/uL (0.0-0.8); MONO % 11.1 % (2.0-8.0); NEUTROPHILS # 9.5 10^3/uL (1.5-8.5); PLATELET COUNT, AUTOMATED 270 10^3/uL (150-450); RED BLOOD COUNT 5.68 10^6/uL (4.30-6.10)
[2024-09-07 06:29] LABS: BLOOD UREA NITROGEN 26 MG/DL (9-23); CALCIUM LEVEL 9.7 MG/DL (8.3-10.6); CARBON DIOXIDE LEVEL 28 MMOL/L (20-31); CHLORIDE LEVEL 101 MMOL/L (98-107); CREATININE FOR GFR 1.22 MG/DL (0.70-1.30); GLOMERULAR FILTRATION RATE > 60.0 (>49); GLUCOSE, FASTING 106 MG/DL (74-106); POTASSIUM SERUM 3.9 MMOL/L (3.5-5.1); SODIUM LEVEL 139 MMOL/L (136-145)
[2024-09-07] MEDS: TIOTROPIUM INHALER/CAPSULE (SPIRIVA) INH SCH (07:56)
[2024-09-07] MEDS: DAPAGLIFLOZIN PROPANEDIOL 10MG TABLET (FARXIGA) PO SCH (08:04)
[2024-09-07] MEDS: ASPIRIN 81MG ENTERIC TABLET PO SCH (08:05)
[2024-09-07] MEDS: OMEPRAZOLE 20MG CAP PO SCH (08:05)
[2024-09-07] MEDS ORDERED: TORSEMIDE 20 MG TAB PO PRN (08:10)
[2024-09-07] MEDS: LEVALBUTEROL HFA 45MCG/ACT 15GM INHALER INH PRN (09:57)
[2024-09-07] MEDS: FUROSEMIDE 40MG/4ML VIAL IV SCH (11:43)
[2024-09-07] MEDS: AMIODARONE 200 MG TAB (PACERONE) PO SCH (20:40)
[2024-09-07 22:04] LABS: MAGNESIUM LEVEL 2.1 MG/DL (1.8-2.4); POTASSIUM SERUM 3.5 MMOL/L (3.5-5.1)
[2024-09-08] VITALS (7 sets, daily range): BP systolic 98–126; BP diastolic 58–72; TEMP 97–98.2; O2SAT 93–96
[2024-09-08 05:38] LABS: BASO # 0.1 10^3/uL (0.0-0.2); BASO % 0.5 % (0.0-1.0); EOS # 0.1 10^3/uL (0.0-0.5); EOS % 0.8 % (0.0-3.0); HEMATOCRIT 50.2 % (42.0-52.0); HEMOGLOBIN 16.8 g/dl (13.5-17.5); LYMPH # 2.6 10^3/uL (1.5-5.0); LYMPH % 21.1 % (24.0-44.0); MEAN CORPUSCULAR HEMOGLOBIN 29.4 pg (27.0-33.0); MEAN CORPUSCULAR HGB CONC 33.5 g/dl (32.0-36.5); MEAN CORPUSCULAR VOLUME 87.8 fl (80.0-96.0); MONO # 1.7 10^3/uL (0.0-0.8); NEUTROPHILS # 7.9 10^3/uL (1.5-8.5); NEUTROPHILS % 63.4 % (36.0-66.0); PLATELET COUNT, AUTOMATED 284 10^3/uL (150-450); RED BLOOD COUNT 5.72 10^6/uL (4.30-6.10); WHITE BLOOD COUNT 12.4 10^3/uL (4.0-10.0)
[2024-09-08] MEDS: METOCLOPRAMIDE INJ 10MG/2ML VIAL IV ONE (05:50)
[2024-09-08 05:58] LABS: CALCIUM LEVEL 9.6 MG/DL (8.3-10.6); CREATININE FOR GFR 1.38 MG/DL (0.70-1.30); GLOMERULAR FILTRATION RATE 54.4 (>49); POTASSIUM SERUM 3.8 MMOL/L (3.5-5.1)
[2024-09-08] MEDS: TORSEMIDE 20 MG TAB PO SCH (08:46)
[2024-09-08] MEDS ORDERED: TORS20TA2 PO (11:26)
[2024-09-08] MEDS ORDERED: AMIO200T49 PO (11:26)
[2024-09-08] MEDS ORDERED: REGL5TAB2 PO (11:34)
== END 2024-09-08 12:11 | disposition home or self-care (01) | DRG 291 ==
LOC: M ED 10:52 → M ED INP 15:27 → M PCU 20:33
PROVIDERS: ADMIT Internal Medicine Nephrology; ATTEND Internal Medicine Nephrology
DX: I11.0 Hypertensive heart disease with heart failure (principal); I50.43 Acute on chronic combined systolic (congestive) and diastolic (congestive) heart failure; I48.91 Unspecified atrial fibrillation; I42.8 Other cardiomyopathies; I27.20 Pulmonary hypertension, unspecified; I44.7 Left bundle-branch block, unspecified; G89.29 Other chronic pain; M54.9 Dorsalgia, unspecified; F10.10 Alcohol abuse, uncomplicated; F32.A Depression, unspecified; F41.9 Anxiety disorder, unspecified; E73.9 Lactose intolerance, unspecified; E78.1 Pure hyperglyceridemia; K64.8 Other hemorrhoids; Z85.118 Personal history of other malignant neoplasm of bronchus and lung; Z85.820 Personal history of malignant melanoma of skin; Z90.2 Acquired absence of lung [part of]; Z79.01 Long term (current) use of anticoagulants; Z79.899 Other long term (current) drug therapy; Z79.82 Long term (current) use of aspirin

== ENCOUNTER → 2025-04-11 | Outpatient (CLI) | payer MEDICARE ==
[~2025-04-11] MED LIST changes: +ACET-1349 PO; +AMIO200T54 PO; +D3 H2000 PO; +ELIQ5TAB PO; +IPRA3SP; +REGL5TAB2 PO; +TORS20TA2 PO
[2025-04-11 10:23] LABS: CALCIUM LEVEL 9.5 MG/DL (8.3-10.6); CREATININE FOR GFR 1.07 MG/DL (0.70-1.30); GLOMERULAR FILTRATION RATE 75.1 (>49)
== END ==
LOC: M LAB 08:59
PROVIDERS: ATTEND Nurse Practitioner Family
DX: I50.20 Unspecified systolic (congestive) heart failure (principal)

== ENCOUNTER 2025-06-24 09:05 | Day surgery (SDC) | payer MEDICARE ==
[~2025-06-24] VITALS: Ht 177.8 cm; Wt 91.8 kg
[~2025-06-24 09:05] MED LIST changes: +FLUT1BLS8 INH
[2025-06-24] MEDS: SODIUM BICARBONATE 8.4% INJ 50MEQ/50ML VIAL XX ONE (09:25)
[2025-06-24] MEDS: LIDOCAINE W/EPINEPHrine 1% 20 ML VIAL XX ONE (09:25)
[2025-06-24] MEDS: LIDOCAINE W/EPINEPHrine 1% 20 ML VIAL SC ONE (11:33)
[2025-06-24 11:56] VITALS: BP 142/83; TEMP 97.2; O2SAT 97
== END 2025-06-24 12:05 | disposition home or self-care (01) ==
LOC: M SDC 09:05
PROVIDERS: ATTEND Orthopaedic Surgery Hand Surgery
DX: M65.322 Trigger finger, left index finger (principal); I10 Essential (primary) hypertension; E78.5 Hyperlipidemia, unspecified; Z79.899 Other long term (current) drug therapy; Z79.01 Long term (current) use of anticoagulants; Z79.51 Long term (current) use of inhaled steroids; Z85.118 Personal history of other malignant neoplasm of bronchus and lung; Z87.891 Personal history of nicotine dependence

== ENCOUNTER 2025-07-08 10:20 | Day surgery (SDC) | payer MEDICARE ==
[~2025-07-08] VITALS: Ht 175.3 cm; Wt 89.1 kg
[~2025-07-08 10:20] MED LIST changes: +ZOLP10TA11 PO; -ZOLP10TA2 PO
[2025-07-08] MEDS ORDERED: LIDOCAINE 2% 100 MG/5 ML SDV (FOR ANES.) As Ordered ONE (11:48)
[2025-07-08 12:02] VITALS: TEMP 98.5
[2025-07-08 12:22] VITALS: BP 116/74; O2SAT 96
== END 2025-07-08 12:33 | disposition home or self-care (01) ==
LOC: M OPP 10:20
PROVIDERS: ATTEND Internal Medicine Gastroenterology
DX: D12.2 Benign neoplasm of ascending colon (principal); D12.4 Benign neoplasm of descending colon; K57.30 Diverticulosis of large intestine without perforation or abscess without bleeding; K64.8 Other hemorrhoids; Z98.890 Other specified postprocedural states; Z86.0100 Personal history of colon polyps, unspecified; I48.91 Unspecified atrial fibrillation; Z95.810 Presence of automatic (implantable) cardiac defibrillator; Z91.02 Food additives allergy status; Z79.01 Long term (current) use of anticoagulants; Z79.51 Long term (current) use of inhaled steroids; Z79.899 Other long term (current) drug therapy

== ENCOUNTER → 2025-07-22 | Outpatient (CLI) | payer MEDICARE ==
[2025-07-22 13:18] LABS: PROGESTERONE < 0.21 NG/ML (0.28-1.22)
[2025-07-22 13:19] LABS: ESTRADIOL 48.0 PG/ML (<39.8); LUTEINIZING HORMONE 0.7 mIU/ML (3.1-34.6)
== END ==
LOC: M WUC 10:05
PROVIDERS: ATTEND Obstetrics & Gynecology
DX: E29.1 Testicular hypofunction (principal); E34.9 Endocrine disorder, unspecified; R53.83 Other fatigue